=== PATIENT | male | born 1960 | race Caucasian/White ===

== ENCOUNTER 2017-09-14 09:13 | Day surgery (SDC) | payer OTHER ==
[~2017-09-14] VITALS: Ht 188 cm; Wt 126.4 kg
[~2017-09-14 09:13] MED LIST: AMLO10 PO; ASPI81CH PO; ATOR40TA PO; BASAGLAR K100 UNIT/1 SC; CARV25 PO; CLON.2TP TP; Desyrel50 MG PO; ESCI20 PO; GABA300 PO; GLIP10 PO; HYDCHL25 PO; INSULANPEN SQ; LAMO100 PO; LIOT25 PO; LISI20 PO; LORA2 PO; METF500 PO; METO100ER PO; Omeprazole20 M1 PO; POTA8 PO; SIMV10 PO; SPIR25 PO; SUMA25 PO; TAMS.4ER PO; TOPI25 PO
== END 2017-09-14 11:31 | disposition home or self-care (01) ==
LOC: ORSCSDS 09:13
PROVIDERS: Internal Medicine Gastroenterology
PROC: 0DJ08ZZ Inspection of Upper Intestinal Tract, Via Natural or Artificial Opening Endoscopic (ICD-10-PCS; principal; 2017-09-14 10:45)
DX: R13.10 Dysphagia, unspecified (principal); E78.5 Hyperlipidemia, unspecified; E11.22 Type 2 diabetes mellitus with diabetic chronic kidney disease; I12.9 Hypertensive chronic kidney disease with stage 1 through stage 4 chronic kidney disease, or unspecified chronic kidney disease; N18.9 Chronic kidney disease, unspecified; G47.33 Obstructive sleep apnea (adult) (pediatric); Z87.891 Personal history of nicotine dependence; Z79.4 Long term (current) use of insulin; Z79.899 Other long term (current) drug therapy
CPT/HCPCS: 82947; J2250; J7030; J7120

== ENCOUNTER 2017-11-27 15:38 | Emergency (ER) | payer OTHER ==
[~2017-11-27] VITALS: Ht 188 cm; Wt 122.5 kg
== END 2017-11-27 16:54 | disposition home or self-care (01) ==
LOC: ER 15:38
DX: I80.8 Phlebitis and thrombophlebitis of other sites (principal); E11.9 Type 2 diabetes mellitus without complications; Z79.899 Other long term (current) drug therapy; Z79.4 Long term (current) use of insulin
CPT/HCPCS: 99281

== ENCOUNTER 2019-03-01 20:10 | Inpatient (IN) | payer OTHER ==
[~2019-03-01] VITALS: Ht 188 cm; Wt 123.0 kg
[~2019-03-01 20:10] MED LIST changes: -AMLO10 PO; -ATOR40TA PO; -BASAGLAR K100 UNIT/1 SC; -ESCI20 PO; -GABA300 PO; -GLIP10 PO; -INSULANPEN SQ; -METF500 PO; -METO100ER PO; -TAMS.4ER PO; -TOPI25 PO
[2019-03-01 20:39] LABS: BASOPHILS ABSOLUTE AUTO 0.03 K/mm3 (0.00-0.23); BASOPHILS PERCENT AUTO 0 % (0-2); EOSINOPHILS ABSOLUTE AUTO 0.29 K/mm3 (0.00-0.68); EOSINOPHILS PERCENT AUTO 3 % (0-6); Hematocrit 37.6 % (37.0-53.0); Hemoglobin 13.1 g/dL (13.5-17.5); IMMATURE GRAN ABSOLUTE AUTO 0.02 K/mm3 (0.00-0.10); IMMATURE GRAN PERCENT AUTO 0 % (0-1); LYMPHOCYTES PERCENT AUTO 31 % (21-46); MONOCYTES PERCENT AUTO 7 % (4-13); Mean Corpuscular HGB 28.5 pg (26.0-34.0); Mean Corpuscular HGB Conc 34.8 g/dL (31.5-36.5); Mean Corpuscular Volume 82 fL (80-100); Mean Platelet Volume 9.5 fL (9.1-12.4); NEUTROPHILS ABSOLUTE AUTO 5.04 K/mm3 (1.96-9.15); NEUTROPHILS PERCENT AUTO 58 % (41-73); Platelet Count 181 K/mm3 (150-400); RDW Coefficient Variation 13.2 % (11.7-14.2); RDW Standard Deviation 38.2 fL (35.1-46.3); White Blood Cell Count 8.68 K/mm3 (4.00-11.30)
[2019-03-01 20:59] LABS: Albumin, Blood 3.3 g/dL (3.4-5.0); Bilirubin, Total 1.2 mg/dL (0.1-1.0); Bun/Creatinine Ratio 12.5 (12.0-20.0); Calcium, Blood 8.5 mg/dL (8.5-10.1); Creatinine, Blood 2.32 mg/dL (0.60-1.20); Globulin, Blood 3.2 g/dL (2.2-4.0); Potassium, Blood 3.7 mmol/L (3.5-5.5); Total Protein, Blood 6.5 g/dL (6.4-8.2)
[2019-03-01] MEDS ORDERED: GLIP5 PO (22:15)
[2019-03-01] MEDS ORDERED: Amlodipine Besy10 MG PO (22:15)
[2019-03-01] MEDS ORDERED: Glucophage1000 MG PO (22:15)
[2019-03-01] MEDS ORDERED: ESCI20 PO (22:16)
[2019-03-01] MEDS ORDERED: TAMS.4ER PO (22:16)
[2019-03-01] MEDS ORDERED: BASAGLAR K100 UNIT/1 SC (22:16)
[2019-03-01] MEDS ORDERED: LISI20 PO (22:16)
[2019-03-01] MEDS ORDERED: METO100ER PO (22:17)
[2019-03-01] MEDS ORDERED: ATOR40TA PO (22:17)
[2019-03-01] MEDS ORDERED: Neurontin800 MG PO (22:17)
[2019-03-01] MEDS ORDERED: TOPI50 PO (22:17)
[2019-03-01] MEDS ORDERED: TOPI100 PO (22:18)
[2019-03-01] MEDS ORDERED: INSULANPEN SQ (22:35)
[2019-03-01] MEDS ORDERED: VITAMIN D3400 UNIT PO (22:38)
[2019-03-01] MEDS ORDERED: Fish Oil 10001000 MG PO (22:38)
[2019-03-01] MEDS ORDERED: ZOLP10 PO (22:43)
[2019-03-01] MEDS ORDERED: Aspirin EC81 MG PO (22:43)
--- NOTE | 2019-03-02 03:52 | NUR ---
TRANSFER NOTE PT ARRIVED TO THE FLOOR VIA STRETCHER AT 2355. PT HAD VSS AND ONLY COMPLAINED OF LEFT LOWER EXTREMITY PAIN. PT ORIENTED TO ROOM.
--- NOTE | 2019-03-02 03:53 | NUR ---
SHIFT SUMMARY PT IS ALERT, ORIENTED, AND 1-2 PERSON ASSIST. PT HAS RECIEVED TYLENOL AND FENTYNAL PER EMAR. GOOD CAPILLARY REFILL NOTED ON LEFT TOES. HOSPITALIST WAS CALLED FOR CLARIFICATION OF DIET ORDER, NPO WAS ORDERED WAS CARDIAC DIET. PER HOSPITALIST, PT SHOULD BE NPO UNTIL MORNING. NO OTHER COMPLAINTS FROM PT AT THIS TIME. VSS. WILL CONTINUE TO MONITOR.
[2019-03-02 06:00] LABS: Calcium, Blood 7.7 mg/dL (8.5-10.1); Creatinine, Blood 1.59 mg/dL (0.60-1.20); Potassium, Blood 3.5 mmol/L (3.5-5.5)
--- NOTE | 2019-03-02 17:56 | NUR ---
PATIENT HAS BEEN RESTING IN BED PREPARING FOR SURGERY WHICH WAS POSTPONED UNITL 04/03 . PATIENT WAS ALLOWED TO EAT DINNER BUT WILL BE NPO AFTER MIDNIGHT TONIGHT . HE HAS ONLY COMPLAINED OF PAIN AND HAS BEEN MEDICATED PER EMAR. FAMILY HAS BEEN PRESENT. NO ACUTE CHANGES
[2019-03-03 05:24] LABS: Hematocrit 37.8 % (37.0-53.0); Hemoglobin 13.2 g/dL (13.5-17.5); Mean Corpuscular HGB 28.9 pg (26.0-34.0); Mean Corpuscular HGB Conc 34.9 g/dL (31.5-36.5); Mean Corpuscular Volume 83 fL (80-100); Platelet Count 160 K/mm3 (150-400); RDW Standard Deviation 38.4 fL (35.1-46.3); Red Blood Cell Count 4.57 M/mm3 (4.30-5.90); White Blood Cell Count 8.01 K/mm3 (4.00-11.30)
[2019-03-03 05:39] LABS: Anion Gap 9 mmol/L (6-16); Blood Urea Nitrogen 14 mg/dL (8-24); Bun/Creatinine Ratio 11.6 (12.0-20.0); CO2, Blood 25 mmol/L (21-32); Calcium, Blood 7.7 mg/dL (8.5-10.1); Chloride, Blood 112 mmol/L (98-108); Creatinine, Blood 1.21 mg/dL (0.60-1.20); Glomerular Filtration Rate >60 (60-); Glucose, Blood 129 mg/dL (70-99); Potassium, Blood 3.1 mmol/L (3.5-5.5); Sodium, Blood 146 mmol/L (136-145)
--- NOTE | 2019-03-03 06:19 | NUR ---
SHIFT SUMMARY: PATIENT HAS A ROUGH NIGHT WITH WAKING UP OFF AND ON THROUGHOUT THE NIGHT DUE TO PAIN AND DISCOMFORT. MEDS WERE GIVEN PER EMAR, INCLUDING PAIN MEDS EVERY 2-4 HOURS PER HIS REQUEST. LEG STAYED ELEVATED, GOOD CIRC CHECKS THROUGHOUT THE NIGHT. NO OTHER COMPLAINTS WERE NOTED, IV INFUSED WITH OUT ANY PROBLEMS, NO OTHER ACUTE CHANGES TO NOTE THIS SHIFT. WILL REPORT TO DAY SHIFT RN.
--- NOTE | 2019-03-03 12:49 | NUR ---
History, Chart, Medications and Allergies reviewed before start of procedure. Lungs clear T/O to Auscultation. Patient confirms NPO status and agrees with scheduled surgery. SPLINT TO LEFT LEG.
--- NOTE | 2019-03-03 13:31 | NUR ---
PT TAKEN TO PRE-OP TO PREP FOR SURGERY LLE- PT VOIDED AND HAD BLOOD SUGAR TAKEN. IV POTASSIUM BAG [address] INFUSED, STOPPED FOR SURGERY. IS WITH PATIENT AND TOOK PERSONAL EFFECTS.
--- NOTE | 2019-03-03 15:56 | NUR ---
CONFUSED ATTEMPTING TO CRAWL OOB PULLING O2 MASK OFF DR ISAAC AT BEDSIDE
--- NOTE | 2019-03-03 16:31 | NUR ---
PT DOES NOT RATE PAINB IN ANY WAY EXCEPT TO SAY "IT HURTS" AND HAS FACIAL GRIMACE THEN DECLINED PAIN MEDICATION BUT NOW IS TELLING ME AFTER APPROX 20 MINUTES THAT HE KNOW WHATS PAIN MED. HE IS A/O AT THIS TIME
--- NOTE | 2019-03-03 17:10 | NUR ---
pt transferred to room on own bed, a/0 x 4, pleasant/cooperative. post op vs commenced and stable. lle cool, cap refil <3 sec, pedal pulse palpable and strong. pt denies pain, no n/v at this time.
--- NOTE | 2019-03-03 18:21 | NUR ---
POST OP VS CONTINUING AND STABLE, PT DENIES N/V, HAS EATEN DINNER TRAY, MEDICATED PER MAR FOR PAIN OF 10, PT A/0 X 4, PLEASANT/COOPERATIVE.
[2019-03-04 04:27] LABS: BASOPHILS PERCENT AUTO 0 % (0-2); EOSINOPHILS ABSOLUTE AUTO 0.01 K/mm3 (0.00-0.68); EOSINOPHILS PERCENT AUTO 0 % (0-6); Hematocrit 34.4 % (37.0-53.0); Hemoglobin 11.7 g/dL (13.5-17.5); IMMATURE GRAN ABSOLUTE AUTO 0.02 K/mm3 (0.00-0.10); IMMATURE GRAN PERCENT AUTO 0 % (0-1); LYMPHOCYTES ABSOLUTE AUTO 1.46 K/mm3 (0.84-5.20); LYMPHOCYTES PERCENT AUTO 16 % (21-46); MONOCYTES ABSOLUTE AUTO 0.89 K/mm3 (0.16-1.47); MONOCYTES PERCENT AUTO 10 % (4-13); Mean Corpuscular HGB 28.1 pg (26.0-34.0); Mean Corpuscular Volume 83 fL (80-100); Mean Platelet Volume 9.2 fL (9.1-12.4); NEUTROPHILS ABSOLUTE AUTO 6.95 K/mm3 (1.96-9.15); NEUTROPHILS PERCENT AUTO 75 % (41-73); Platelet Count 176 K/mm3 (150-400); RDW Coefficient Variation 12.9 % (11.7-14.2); RDW Standard Deviation 38.2 fL (35.1-46.3); Red Blood Cell Count 4.16 M/mm3 (4.30-5.90); White Blood Cell Count 9.33 K/mm3 (4.00-11.30)
[2019-03-04] MEDS ORDERED: MIRALAX17 GM PO (14:38)
[2019-03-04] MEDS ORDERED: HYDR1TAB94 PO (14:41)
--- NOTE | 2019-03-04 17:52 | NUR ---
3870 discharge instructions reviewed with patient and his . per patient he spoke with staff at [facility] and he was told he would have to pay for a wheelchair out of pocket- patient states he has access to a wheelchair without leg extensions. patient wishes to be discharged today and feels he will be able to manage safely at home. spoke with ingrid florez rn, [facility] liason and she will contact patient on 03/07/19 to follow up
== END 2019-03-04 17:45 | disposition home or self-care (01) | DRG 493 ==
LOC: ER 20:10 → MEDS 20:11 → SURS 03-03 14:09
PROVIDERS: Emergency Medicine; Internal Medicine; Orthopaedic Surgery; ADMIT Hospitalist
PROC: 0QSH36Z Reposition Left Tibia with Intramedullary Internal Fixation Device, Percutaneous Approach (ICD-10-PCS; principal; 2019-03-03 12:30)
DX: S82.302A Unspecified fracture of lower end of left tibia, initial encounter for closed fracture (principal); N17.9 Acute kidney failure, unspecified; S82.402A Unspecified fracture of shaft of left fibula, initial encounter for closed fracture; N18.3 Chronic kidney disease, stage 3 (moderate); N40.0 Benign prostatic hyperplasia without lower urinary tract symptoms; I12.9 Hypertensive chronic kidney disease with stage 1 through stage 4 chronic kidney disease, or unspecified chronic kidney disease; E11.22 Type 2 diabetes mellitus with diabetic chronic kidney disease; I95.1 Orthostatic hypotension; Z79.84 Long term (current) use of oral hypoglycemic drugs; Z79.4 Long term (current) use of insulin; Z79.899 Other long term (current) drug therapy; Z87.891 Personal history of nicotine dependence; Z79.82 Long term (current) use of aspirin
CPT/HCPCS: 29505; 36415; 73590; 73700; 76000; 76377; 80048; 80053; 82947; 85025; 85027; 93005; 93010; 93306; 96361; 96361-59; 96374-59; 96375; 96375-59; 96376; 96376-59; 97162; 97166; 97530; 97535; 99285-25; A9270; A9270-GY; C1713; C1769; G0378; J0690; J1100; J1170; J1644; J1885; J2250; J2370; J2405; J2704; J3010; J3480; J7030; J7120

== ENCOUNTER 2019-08-09 20:22 | Inpatient (IN) | payer MEDICAID ==
[~2019-08-09] VITALS: Ht 188 cm; Wt 109.5 kg
[~2019-08-09 20:22] MED LIST changes: +ATOR40TA PO; +Amlodipine Besy10 MG PO; +Aspirin EC81 MG PO; +BASAGLAR K100 UNIT/1 SC; +ESCI20 PO; +Fish Oil 10001000 MG PO; +GLIP5 PO; +Glucophage1000 MG PO; +HYDR1TAB94 PO; +INSULANPEN SQ; +METO100ER PO; +MIRALAX17 GM PO; +Neurontin800 MG PO; +TAMS.4ER PO; +TOPI100 PO; +TOPI50 PO; +VITAMIN D3400 UNIT PO; +ZOLP10 PO
[2019-08-09 21:16] LABS: BASOPHILS ABSOLUTE AUTO 0.04 K/mm3 (0.00-0.23); BASOPHILS PERCENT AUTO 0 % (0-2); EOSINOPHILS PERCENT AUTO 2 % (0-6); Hematocrit 48.5 % (37.0-53.0); Hemoglobin 16.8 g/dL (13.5-17.5); IMMATURE GRAN ABSOLUTE AUTO 0.02 K/mm3 (0.00-0.10); IMMATURE GRAN PERCENT AUTO 0 % (0-1); LYMPHOCYTES ABSOLUTE AUTO 2.81 K/mm3 (0.84-5.20); LYMPHOCYTES PERCENT AUTO 25 % (21-46); MONOCYTES ABSOLUTE AUTO 0.68 K/mm3 (0.16-1.47); MONOCYTES PERCENT AUTO 6 % (4-13); Mean Corpuscular HGB Conc 34.6 g/dL (31.5-36.5); Mean Corpuscular Volume 78 fL (80-100); Mean Platelet Volume 9.8 fL (9.1-12.4); NEUTROPHILS ABSOLUTE AUTO 7.37 K/mm3 (1.96-9.15); NEUTROPHILS PERCENT AUTO 66 % (41-73); Platelet Count 279 K/mm3 (150-400); RDW Coefficient Variation 13.4 % (11.7-14.2); RDW Standard Deviation 37.7 fL (35.1-46.3); Red Blood Cell Count 6.22 M/mm3 (4.30-5.90); White Blood Cell Count 11.12 K/mm3 (4.00-11.30)
[2019-08-09 21:36] LABS: Alanine Aminotransfer (ALT/SGP 52 U/L (12-78); Albumin, Blood 4.2 g/dL (3.4-5.0); Alk Phos 120 U/L (50-136); Anion Gap 16 mmol/L (6-16); Aspartate Aminotrans (AST/SGOT 23 U/L (12-37); Bilirubin, Total 2.7 mg/dL (0.1-1.0); Blood Urea Nitrogen 17 mg/dL (8-24); Bun/Creatinine Ratio 10.2 (12.0-20.0); CO2, Blood 20 mmol/L (21-32); Calcium, Blood 9.9 mg/dL (8.5-10.1); Chloride, Blood 103 mmol/L (98-108); Creatinine, Blood 1.66 mg/dL (0.60-1.20); Globulin, Blood 4.4 g/dL (2.2-4.0); Glomerular Filtration Rate 46 (60-); Glucose, Blood 314 mg/dL (70-99); Sodium, Blood 139 mmol/L (136-145); Total Protein, Blood 8.6 g/dL (6.4-8.2); Troponin I <0.015 ng/mL (0.000-0.040)
[2019-08-09 22:23] LABS: Source, Urine Clean Catch
[2019-08-09 22:25] LABS: Bilirubin, Urine Neg (Neg); Blood, Urine 1+ (Neg); Glucose Qualitative, Urine 4+ (Neg); Ketones, Urine 4+ (Neg); Leukocyte Esterase, Urine Neg (Neg); Nitrite, Urine Neg (Neg); Protein, Urine 4+ (Neg); Specific Gravity, Urine 1.015 (1.003-1.022); Urobilinogen, Urine NORM (Normal)
[2019-08-09 22:28] LABS: Appearance, Urine Clear (Clear); Color, Urine Yellow (P-Yellow)
[2019-08-09 22:31] LABS: Red Blood Cells, Urine 0-2 /hpf (0-2)
[2019-08-09 22:32] LABS: Bacteria Mod /hpf; Hyaline Casts 0-2 /lpf (0-2); Squamous Epithelial Cells Not Seen /hpf (Few)
[2019-08-09 23:23] LABS: Influenza A Negative (NEGATIVE); Influenza B Negative (NEGATIVE)
[2019-08-10 04:22] LABS: Source, Urine Catheter
[2019-08-10 04:26] LABS: Bilirubin, Urine Neg (Neg); Blood, Urine 1+ (Neg); Glucose Qualitative, Urine 4+ (Neg); Ketones, Urine 3+ (Neg); Leukocyte Esterase, Urine Neg (Neg); Nitrite, Urine Neg (Neg); Protein, Urine 2+ (Neg); Urobilinogen, Urine NORM (Normal)
[2019-08-10 04:32] LABS: Appearance, Urine Clear (Clear); Color, Urine Yellow (P-Yellow)
[2019-08-10 04:33] LABS: Bacteria Few /hpf; Red Blood Cells, Urine 0-2 /hpf (0-2); Squamous Epithelial Cells Not Seen /hpf (Few); White Blood Cells, Urine 0-2 /hpf (0-5)
--- NOTE | 2019-08-10 05:16 | NUR ---
PT TO ICU 14 FROM ED. PT ARRIVES ON STRETCHER, ABLE TO STAND AND PIVOT TO ICU BED. PT C/O NAUSEA AND BEGAN ACTIVELY VOMITING. PT STAND BY ASSIST TO USE URINAL, 125 ML OUT, BLADDER SCAN SHOWS 660 ML RETAINED. NARVAEZ PLACED FOR RETENTION. BLOOD PRESSURE 278/136 ON ARRIVAL. ORDER TO START NICARDIPINE GTT. PT CHANGED FROM PCU OBS TO ICU STATUS PT. NICARAPINE GTT STARTED AT 0415 AND TITRATED Q15 MIN TO MAX DOSE 150 ML/HR AT 0530 WITH NO CHANGE IN BLOOD PRESSURE. PT TACHYCARDIC WITH HR IN MID 140'S. PT TREATED FOR C/O ABDOMINAL PAIN AND NAUSEA. CALL TO DR. SHELTON, UPDATED ON PT STATUS AND CONTINUED HYPERTENSION. ORDER TO START LABETALOL GTT, TITRATE TO AFFECT.
[2019-08-10 05:58] LABS: Anion Gap 16 mmol/L (6-16); Blood Urea Nitrogen 15 mg/dL (8-24); Bun/Creatinine Ratio 13.3 (12.0-20.0); CO2, Blood 15 mmol/L (21-32); Calcium, Blood 7.9 mg/dL (8.5-10.1); Chloride, Blood 112 mmol/L (98-108); Creatinine, Blood 1.13 mg/dL (0.60-1.20); Glomerular Filtration Rate >60 (60-); Glucose, Blood 346 mg/dL (70-99); Potassium, Blood 2.6 mmol/L (3.5-5.5); Sodium, Blood 143 mmol/L (136-145)
--- NOTE | 2019-08-10 09:31 | NUR ---
0700-ASSUMED CARE OF PT. PT IS ALERT AND ORIENTED. FOLLOWING COMMANDS. PT IS FEELING NAUSEOUS. ON LABETALOL DRIP AT 3MG/MIN THIS WAS INCREASED TO 4MG/MIN. 0825-DR. ALTMAN WAS CALLED REGARDING PT'S UNCONTROLLED BP. ORDERS RECEIVED.
--- NOTE | 2019-08-10 15:13 | NUR ---
DR. ALTMAN WAS NOTIFIED REGARDING AMOUNT OF PT'S EMESIS NO MAINTENANCE FLUID ORDERED. ORDERS RECEIVED.
--- NOTE | 2019-08-10 18:57 | NUR ---
SHIFT SUMMARY: PT IS STILL ON LABETALOL DRIP 2 0.5MG/MIN. PT STATED FEELING A LITTLE BETTER, NOT NASEOUS HE HAD BEEN. AFEBRILE. PT'S POTASSIUM WAS REPLACED WITH 100MEQ TOTAL POTASSIUM IV. AFEBRILE.
--- NOTE | 2019-08-10 20:00 | NUR ---
ASSUMED CARE OF PT AT 1915. REPORT RECEIVED AT BEDSIDE. PT PRESENTS IN BED. ALERT AND ORIENTED. PLEASANT AND COOPERATIVE WITH CARE AND ASSESSMENT. PT LABATELOL DRIP OFF AT THIS TIME. BLOOD PRESSURES REMAINS WNL. WILL REVIEW CHART AND PLAN OF CARE FOR THIS PT.
--- NOTE | 2019-08-11 | NUR ---
PT HAS BEEN ABLE TO REST THIS EVENING. PT DENIES COMPLAINTS OF NAUSEA. STATES HE IS FEELING MUCH BETTER. DISCUSSED AND TEACHING DONE ON IMPORTANCE OF KEEPING ON HIS PRESCRIBED MEDICATIONS. PT VOICED UNDERSTANDING.
[2019-08-11 03:33] LABS: BASOPHILS ABSOLUTE AUTO 0.01 K/mm3 (0.00-0.23); BASOPHILS PERCENT AUTO 0 % (0-2); EOSINOPHILS ABSOLUTE AUTO 0.01 K/mm3 (0.00-0.68); EOSINOPHILS PERCENT AUTO 0 % (0-6); Hematocrit 40.8 % (37.0-53.0); Hemoglobin 13.7 g/dL (13.5-17.5); IMMATURE GRAN ABSOLUTE AUTO 0.08 K/mm3 (0.00-0.10); IMMATURE GRAN PERCENT AUTO 1 % (0-1); LYMPHOCYTES ABSOLUTE AUTO 1.93 K/mm3 (0.84-5.20); LYMPHOCYTES PERCENT AUTO 13 % (21-46); MONOCYTES ABSOLUTE AUTO 1.15 K/mm3 (0.16-1.47); MONOCYTES PERCENT AUTO 8 % (4-13); Mean Corpuscular HGB 27.2 pg (26.0-34.0); Mean Corpuscular HGB Conc 33.6 g/dL (31.5-36.5); Mean Platelet Volume 9.8 fL (9.1-12.4); NEUTROPHILS ABSOLUTE AUTO 11.83 K/mm3 (1.96-9.15); NEUTROPHILS PERCENT AUTO 79 % (41-73); Platelet Count 225 K/mm3 (150-400); RDW Coefficient Variation 14.3 % (11.7-14.2); RDW Standard Deviation 40.7 fL (35.1-46.3); Red Blood Cell Count 5.03 M/mm3 (4.30-5.90); White Blood Cell Count 15.01 K/mm3 (4.00-11.30)
[2019-08-11 03:37] LABS: Mean Corpuscular Volume 81 fL (80-100)
[2019-08-11 03:51] LABS: Bun/Creatinine Ratio 11.1 (12.0-20.0); Calcium, Blood 9.2 mg/dL (8.5-10.1); Creatinine, Blood 2.25 mg/dL (0.60-1.20); Magnesium, Blood 1.6 mg/dL (1.6-2.4); Potassium, Blood 3.6 mmol/L (3.5-5.5)
--- NOTE | 2019-08-11 06:11 | NUR ---
PT HAS NO CHANGES FROM PREVIOUS ASSESSMENTS. HAS BEEN ABLE TO REST WITHOUT COMPLAINTS. NO NAUSEA. VSS WNL. WILL CONTINUE TO MONITOR PT, AND WILL REPORT OFF TO ONCOMING RN.
--- NOTE | 2019-08-11 08:00 | NUR ---
ASSUMED CARE OF PT AT 0700. REPORT FROM REBECA LAZARO. PT RESTING IN BED. A&OX4. ANSWERS QUESTIONS APPROPRIATELY. DENIES COMPLAINTS. STATES HE WANTS TO GO HOME. REPORTS NAUSEA IMPROVED. ABD ROUND, SOFT, NON TENDER. BT X 4. LUNGS CLEAR. VSS. DR SHELTON IN TO SEE PT. LR INCREASED TO 150 ML/HR. PT STATUS CHANGED TO MEDICAL s TELE. PT TOLERATED BREAKFAST WELL. DENIES N/V p EATING. WILL CONTINUE TO MONITOR.
--- NOTE | 2019-08-11 09:32 | NUR ---
PT TRANSFERRED TO MEDICAL FLOOR. REPORT TO FRIDA LAZARO. ALL BELONGINGS c PT.
--- NOTE | 2019-08-11 11:26 | NUR ---
PT TRANSFERRED FROM ICU THIS MORNING. PT IS ALERT AND ORIENTED AND INDEPENDENT IN HIS ROOM. HE IS ABLE TO EXPRESS ANY NEEDS. PT EDUCATED REGARDING PROPER FOODS FOR HIS DM2. FAMILY AT BEDSIDE. PT HAS LR RUNNING. PT STATED HE HAS SESAY, TYLENOL GIVEN. NO SKIN ISSUES NOTED. CALL LIGHT WITHIN REACH.
--- NOTE | 2019-08-11 15:50 | NUR ---
PT TRANSFERRED FROM TO ROOM 348 TO ROOM 363. PT TRANSFERRED IN BED D/T HIS DEEP SLEEPING, NO S/S OF DISTRESS. WILL MONITOR
--- NOTE | 2019-08-11 18:20 | NUR ---
PT AWAKE AND AMBULATING INDEPENDENTLY IN THE ROOM. SITTING ON EOB EATING DINNER.
--- NOTE | 2019-08-11 18:20 | NUR ---
PT DENIES ABD PAIN, N/V OR OTHER DISCOMFORT. EATING DINNER AND APPEARS TO BE TOLERATING WELL. NO ACUTE CHANGES NOTED SINCE ARRIVAL TO ROOM. WILL CONTINUE TO MONITOR AND REPORT TO ONCOMING RN.
--- NOTE | 2019-08-12 07:21 | NUR ---
NOC SHIFT SUMMARY PT PLEASANT AND COOPERATIVE WITH CARE. HE HAS SLEPT MUCH OF THE NIGHT. AAOX4. TREATED FOR HTN ONCE PER EMAR TO GOOD EFFECT. NO ACUTE CHANGES NOTED. REPORT TO ONCOMING RN.
[2019-08-12 08:09] LABS: Bun/Creatinine Ratio 15.8 (12.0-20.0); Calcium, Blood 8.9 mg/dL (8.5-10.1); Creatinine, Blood 1.65 mg/dL (0.60-1.20)
[2019-08-12] MEDS ORDERED: HUMALOG KW200 UNIT/1 (11:50)
[2019-08-12] MEDS ORDERED: Catapres0.2 MG PO (11:51)
[2019-08-12] MEDS ORDERED: ASPI81CH PO (11:51)
--- NOTE | 2019-08-12 13:08 | NUR ---
PATIENT DISCHARGE: PATIENT DISCHARGED TO HOME THIS SHIFT. MEDICATION RECONCILIATION COMPLETED; MED LIST FAXED TO [facility]. DISCHARGE EDUCATION COMPLETED WITH PATIENT AND FAMILY. PATIENT TRANSPORTED TO EXIT BY [facility] STAFF WITH WHEELCHAIR AT 1304. PATIENT DEPARTED [facility] VIA PRIVATE AUTO.
== END 2019-08-12 13:35 | disposition home or self-care (01) | DRG 305 ==
LOC: ER 20:22 → ERHOLD 20:23 → ICUW 20:23 → MEDS 08-11 09:30 → ENPENDDIS 08-12 12:00 → MEDS 08-12 13:35
PROVIDERS: Emergency Medicine; Internal Medicine; Physician Assistant; ADMIT Internal Medicine
DX: I16.0 Hypertensive urgency (principal); N17.9 Acute kidney failure, unspecified; E11.65 Type 2 diabetes mellitus with hyperglycemia; N18.3 Chronic kidney disease, stage 3 (moderate); E11.22 Type 2 diabetes mellitus with diabetic chronic kidney disease; I12.9 Hypertensive chronic kidney disease with stage 1 through stage 4 chronic kidney disease, or unspecified chronic kidney disease; N40.0 Benign prostatic hyperplasia without lower urinary tract symptoms; Z87.891 Personal history of nicotine dependence; Z79.4 Long term (current) use of insulin; Z79.82 Long term (current) use of aspirin; E87.6 Hypokalemia; D72.829 Elevated white blood cell count, unspecified
CPT/HCPCS: 36415; 51702; 71046; 74176; 80048; 80053; 81001; 82010; 82947; 83690; 83735; 84484; 85025; 87086; 87804; 93005; 93010; 96361; 96365; 96375; 96376; 99285-25; A9270; G0378; J0360; J0696; J1200; J1630; J1650; J2405; J2550; J2765; J3010; J3480; J7030; J7050; J7060; J7120

== ENCOUNTER 2019-10-07 14:10 | Observation (INO) | payer SELFPAY ==
[~2019-10-07] VITALS: Ht 188 cm; Wt 101.5 kg
[~2019-10-07 14:10] MED LIST changes: +Catapres0.2 MG PO; +HUMALOG KW200 UNIT/1
[2019-10-07 14:34] LABS: BASOPHILS ABSOLUTE AUTO 0.02 K/mm3 (0.00-0.23); BASOPHILS PERCENT AUTO 0 % (0-2); EOSINOPHILS PERCENT AUTO 0 % (0-6); Hematocrit 52.9 % (37.0-53.0); Hemoglobin 18.1 g/dL (13.5-17.5); IMMATURE GRAN ABSOLUTE AUTO 0.02 K/mm3 (0.00-0.10); IMMATURE GRAN PERCENT AUTO 0 % (0-1); LYMPHOCYTES ABSOLUTE AUTO 1.65 K/mm3 (0.84-5.20); LYMPHOCYTES PERCENT AUTO 17 % (21-46); MONOCYTES ABSOLUTE AUTO 0.27 K/mm3 (0.16-1.47); MONOCYTES PERCENT AUTO 3 % (4-13); Mean Corpuscular HGB 27.5 pg (26.0-34.0); Mean Corpuscular HGB Conc 34.2 g/dL (31.5-36.5); Mean Corpuscular Volume 80 fL (80-100); Mean Platelet Volume 9.8 fL (9.1-12.4); NEUTROPHILS ABSOLUTE AUTO 7.91 K/mm3 (1.96-9.15); NEUTROPHILS PERCENT AUTO 80 % (41-73); Platelet Count 330 K/mm3 (150-400); Red Blood Cell Count 6.59 M/mm3 (4.30-5.90); White Blood Cell Count 9.87 K/mm3 (4.00-11.30)
[2019-10-07 15:11] LABS: Alanine Aminotransfer (ALT/SGP 26 U/L (12-78); Albumin, Blood 4.5 g/dL (3.4-5.0); Alk Phos 129 U/L (50-136); Anion Gap 19 mmol/L (6-16); Aspartate Aminotrans (AST/SGOT 16 U/L (12-37); Bilirubin, Total 2.9 mg/dL (0.1-1.0); Blood Urea Nitrogen 17 mg/dL (8-24); Bun/Creatinine Ratio 13.1 (12.0-20.0); CO2, Blood 19 mmol/L (21-32); Calcium, Blood 10.2 mg/dL (8.5-10.1); Chloride, Blood 97 mmol/L (98-108); Globulin, Blood 4.7 g/dL (2.2-4.0); Glomerular Filtration Rate >60 (60-); Glucose, Blood 458 mg/dL (70-99); Potassium, Blood 3.4 mmol/L (3.5-5.5); Sodium, Blood 135 mmol/L (136-145); Total Protein, Blood 9.2 g/dL (6.4-8.2)
[2019-10-07] MEDS ORDERED: ESCI20 PO (16:40)
[2019-10-07] MEDS ORDERED: CLON.2 PO ×2 (16:40→17:34)
[2019-10-07] MEDS ORDERED: Neurontin800 MG PO (16:45)
[2019-10-07] MEDS ORDERED: Metformin HCl1000 MG PO (16:45)
[2019-10-07] MEDS ORDERED: ATORVASTATIN CA40 MG PO (16:45)
[2019-10-07] MEDS ORDERED: GLIP10ER PO (17:45)
[2019-10-08 04:00] LABS: Bun/Creatinine Ratio 12.6 (12.0-20.0); Calcium, Blood 8.9 mg/dL (8.5-10.1); Creatinine, Blood 2.38 mg/dL (0.60-1.20); Potassium, Blood 3.8 mmol/L (3.5-5.5)
--- NOTE | 2019-10-08 04:36 | NUR ---
PATIENT BP AT THE START OF THE SHIFT WAS 217/140 WITH HR 103. CLONIDINE WAS GIVEN AT 192 (217/140) AND AT 2107 (204/115). NORVASC 10MG PO WAS ALSO GIVEN AT 2107. AT 2316 BP HAD DROPPED TO 135/84 HR 99. IV FLUIDS STATED AT 125CC/ HOUR. BP CONTINUED TO DROP TO 96/50 HR 76 @ 0419. PATIENTS MIGRAINE WAS COMPLETELY RESOLVED BY 2229. NAUSEA AND VOMITING RESOLVED @ 0 AFTER ZOFRAN IV. PATIENT STATED THAT HE WAS ABLE SLEEP FOR THE FIRST TIME IN 2 DAYS. UP TO THE BR TO VOID T/O NIGHT. NO ACUTE CHANGES.
--- NOTE | 2019-10-08 08:02 | NUR ---
ASSUMED CARE REPORT RECEVIED FROM CUSTOM GARMENT DESIGNER. PT RESTING IN BED, BUT GOT UP TO EOB INDPENEDENTLY FOR BREAKFAST. PT DENIES ANY CURRENT HEADACHE OR CHEST PAIN. PT STATES HIS NAUSEA IS IMPROVED AND IS EATING SOME BREAKFAST. BG 433. PT SAYS HE NORMALLY TAKES 25 UNITS OF LANTUS, ONLY 20 ORDERED. WILL TALK WITH HOSPITALIST ABOUT IT ON ROUNDS. NO OTHER REQUESTS FROM PT AT THIS TIME. CONTINUE TO MONITOR.
--- NOTE | 2019-10-08 11:59 | NUR ---
REASSESSMENT: PT HAS BEEN RESTING IN BED THROUGHOUT THE MORNING. HE IS GETTING UP TO THE BR WITH MINIMAL ASSIST. REMAINS ALERT AND ORIENTED. NO HEADACHES OR NAUSEA. BLOOD SUGARS DISCUSSED WITH DR. DAWKINS. ORDER FOR AN ADDITIONAL 5 UNITS HUMALOG WITH LUNCH SS D/T GLUCOSE OVER 400. NO OTHER REQUESTS FROM PT.
--- NOTE | 2019-10-08 16:18 | NUR ---
SHIFT SUMMARY PT HAS BEEN RESTING THROUGHOUT THE DAY. BP HAS BEEN CONTROLLED WITH SBP IN THE 120-130S, SEE VITALS. DENIES HEADACHE, NAUSEA, DIZZINESS. BLOOD SUGARS CONTINUE TO BE ELEVATED, BUT DR. DAWKINS ADDED BACK IN PT'S ORAL DIABETIC MEDS WELL INCREASED HIS LANTUS DOSE. PT STATES HIS BLOOD SUGAR AT HOME IS IN THE 200-300 RANGE CONSISTENTLY. LUNGS REMAIN CLEAR, VOIDING INDEPENDENTLY, APPETITE IMPROVING. CONTINUING TO MONITOR.
[2019-10-09 04:48] LABS: Bun/Creatinine Ratio 19.6 (12.0-20.0); Calcium, Blood 8.8 mg/dL (8.5-10.1); Creatinine, Blood 1.99 mg/dL (0.60-1.20); Potassium, Blood 2.8 mmol/L (3.5-5.5)
--- NOTE | 2019-10-09 05:58 | NUR ---
DR FARRIS NOTIFIED OF THE POTASSIUM OF 2.8, CREATININE 1.99, AND BUN OF 39. WILL INFUSE 40 MEQ OF POTASSIUM THIS AM. PATIENT WAKES EASILY FOR VS, ROUNDING AND BLOOD DRAWS. NO OTHER ACUTE CHANGES.
--- NOTE | 2019-10-09 14:08 | NUR ---
PT SUMMARY: PT PLAN TO DISCHARGE LATER THIS AFTERNOON IF BLOOD PRESSURE STABLE, KIDNEY FUNCTION AND BLOOD SUGAR ARE UNDER CONTROL. PT C/O HEADACHE THIS MORNING RESOLVED BY TYLENOL, BP SYSTOLIC ON THE 140'S-150'S BP MEDS GIVEN AND NEW ORDER HYDRALAZINE PO THE REST OF THE VITALS STABLE. NORMAL SALINE CURRENTLY RUNNING AT 150MLS/HR FOR HYDRATION. PT CURRENTLY RESTING IN BED, CALL LIGHTS WITHIN REACH ABLE TO MAKE NEEDS KNOWN.
[2019-10-09 15:31] LABS: Bun/Creatinine Ratio 21.5 (12.0-20.0); Calcium, Blood 8.7 mg/dL (8.5-10.1); Creatinine, Blood 1.72 mg/dL (0.60-1.20); Potassium, Blood 3.2 mmol/L (3.5-5.5)
--- NOTE | 2019-10-09 17:06 | NUR ---
PT TO DISCHARGE [facility] AT 10P AWAITING FOR TO GET OFF WORK SO CAN PICK PT UP. DR DAWKINS IS AWARE ORDER TO FINISH THE BAG OF LR 1000ML CURRENTLY RUNNING AND TO MAKE SURE HE TAKES HIS BED TIME MEDICATION PRIOR TO DISCHARGE. WILL KEEP MONITORING UNTIL DISCHARGE.
[2019-10-09] MEDS ORDERED: GLIP10ER PO (18:17)
[2019-10-09] MEDS ORDERED: METO100 PO (18:17)
[2019-10-09] MEDS ORDERED: HYDRA25 PO (18:18)
[2019-10-09] MEDS ORDERED: BASAGLAR K100 UNIT/1 SC (18:19)
[2019-10-09] MEDS ORDERED: CLON.2 PO (18:23)
--- NOTE | 2019-10-09 22:01 | NUR ---
DISCHARGE DC PAPER SIGNED. DC PACKET GIVEN AND PT EDUCATED BY THIS RN. PT HAS NO ADDITIONAL QUESTIONS OR CONCERNS AT THIS TIME. PT DENIES ANY FURTHER COMPLAINTS, AND THERE HAVE BEEN NO ACUTE CHANGES IN PT ASSESSMENT THIS SHIFT. IV REMOVED WITH CATHETER INTACT. PT IS WAITING FOR HIS TO PICK HIM UP AT THIS TIME. CHERYL SRIVASTAVA CNA TO WHEEL PT OUT.
--- NOTE | 2019-10-09 22:43 | NUR ---
DISCAHRGED PT DISCHARGED WITH BELONGINGS INTACT @1691 WHEELED OUT BY CHERYL SRIVASTAVA CNA.
== END 2019-10-09 22:20 | disposition home or self-care (01) ==
LOC: ER 14:10 → PCU 14:11
PROVIDERS: Emergency Medicine; Internal Medicine; ADMIT Internal Medicine
DX: I16.0 Hypertensive urgency (principal); I12.9 Hypertensive chronic kidney disease with stage 1 through stage 4 chronic kidney disease, or unspecified chronic kidney disease; E86.0 Dehydration; E87.6 Hypokalemia; N28.9 Disorder of kidney and ureter, unspecified; E11.65 Type 2 diabetes mellitus with hyperglycemia; R11.2 Nausea with vomiting, unspecified; E11.22 Type 2 diabetes mellitus with diabetic chronic kidney disease; F41.8 Other specified anxiety disorders; N40.0 Benign prostatic hyperplasia without lower urinary tract symptoms; N18.3 Chronic kidney disease, stage 3 (moderate); Z87.891 Personal history of nicotine dependence; Z79.899 Other long term (current) drug therapy
CPT/HCPCS: 36415; 70450; 74176; 80048; 80053; 82947; 83690; 84484; 85025; 93005; 93010; 96361; 96372; 96374; 96375; 96376; 99285-25; A9270; A9270-GY; G0378; J0360; J1650; J2405; J2550; J3480; J7030; J7050; J7120

== ENCOUNTER 2019-10-11 21:41 | Emergency (ER) | payer SELFPAY ==
[~2019-10-11] VITALS: Ht 188 cm; Wt 108.9 kg
[~2019-10-11 21:41] MED LIST changes: +ATORVASTATIN CA40 MG PO; +CLON.2 PO; +GLIP10ER PO; +HYDRA25 PO; +METO100 PO; +Metformin HCl1000 MG PO
[2019-10-11 22:34] LABS: Source, Urine Clean Catch
[2019-10-11 22:34] LABS: BASOPHILS ABSOLUTE AUTO 0.06 K/mm3 (0.00-0.23); BASOPHILS PERCENT AUTO 1 % (0-2); EOSINOPHILS ABSOLUTE AUTO 0.04 K/mm3 (0.00-0.68); EOSINOPHILS PERCENT AUTO 0 % (0-6); Hematocrit 54.8 % (37.0-53.0); Hemoglobin 19.2 g/dL (13.5-17.5); IMMATURE GRAN ABSOLUTE AUTO 0.03 K/mm3 (0.00-0.10); IMMATURE GRAN PERCENT AUTO 0 % (0-1); LYMPHOCYTES ABSOLUTE AUTO 1.83 K/mm3 (0.84-5.20); LYMPHOCYTES PERCENT AUTO 18 % (21-46); MONOCYTES PERCENT AUTO 3 % (4-13); Mean Corpuscular HGB 27.5 pg (26.0-34.0); Mean Corpuscular Volume 79 fL (80-100); Mean Platelet Volume 9.9 fL (9.1-12.4); NEUTROPHILS ABSOLUTE AUTO 8.21 K/mm3 (1.96-9.15); NEUTROPHILS PERCENT AUTO 78 % (41-73); Platelet Count 321 K/mm3 (150-400); RDW Coefficient Variation 13.6 % (11.7-14.2); RDW Standard Deviation 35.8 fL (35.1-46.3); Red Blood Cell Count 6.97 M/mm3 (4.30-5.90); White Blood Cell Count 10.47 K/mm3 (4.00-11.30)
[2019-10-11 22:37] LABS: Bilirubin, Urine Neg (Neg); Blood, Urine 1+ (Neg); Glucose Qualitative, Urine 4+ (Neg); Ketones, Urine 3+ (Neg); Leukocyte Esterase, Urine Neg (Neg); Nitrite, Urine Neg (Neg); Protein, Urine 3+ (Neg); Urobilinogen, Urine NORM (Normal)
[2019-10-11 22:46] LABS: Appearance, Urine Clear (Clear); Color, Urine Pale Yellow (P-Yellow)
[2019-10-11 22:47] LABS: Alanine Aminotransfer (ALT/SGP 34 U/L (12-78); Albumin, Blood 4.8 g/dL (3.4-5.0); Alk Phos 127 U/L (50-136); Anion Gap 17 mmol/L (6-16); Aspartate Aminotrans (AST/SGOT 25 U/L (12-37); Bilirubin, Total 2.3 mg/dL (0.1-1.0); Blood Urea Nitrogen 17 mg/dL (8-24); Bun/Creatinine Ratio 13.3 (12.0-20.0); CO2, Blood 21 mmol/L (21-32); Calcium, Blood 10.4 mg/dL (8.5-10.1); Chloride, Blood 101 mmol/L (98-108); Creatinine, Blood 1.28 mg/dL (0.60-1.20); Globulin, Blood 4.9 g/dL (2.2-4.0); Glomerular Filtration Rate >60 (60-); Glucose, Blood 298 mg/dL (70-99); Potassium, Blood 3.3 mmol/L (3.5-5.5); Sodium, Blood 139 mmol/L (136-145); Total Protein, Blood 9.7 g/dL (6.4-8.2)
[2019-10-11 22:48] LABS: Bacteria Rare /hpf; Red Blood Cells, Urine 0-2 /hpf (0-2); Squamous Epithelial Cells Rare /hpf (Few); White Blood Cells, Urine Not Seen /hpf (0-5)
[2019-10-11] MEDS ORDERED: ONDA4ODT MM (23:41)
== END 2019-10-12 00:08 | disposition home or self-care (01) ==
LOC: ER 21:41
PROVIDERS: Nurse Practitioner
DX: K52.9 Noninfective gastroenteritis and colitis, unspecified (principal); K29.70 Gastritis, unspecified, without bleeding; I12.9 Hypertensive chronic kidney disease with stage 1 through stage 4 chronic kidney disease, or unspecified chronic kidney disease; N18.3 Chronic kidney disease, stage 3 (moderate); E11.22 Type 2 diabetes mellitus with diabetic chronic kidney disease; F32.9 Major depressive disorder, single episode, unspecified; F41.9 Anxiety disorder, unspecified; N40.0 Benign prostatic hyperplasia without lower urinary tract symptoms; Z87.891 Personal history of nicotine dependence; Z79.82 Long term (current) use of aspirin; Z79.4 Long term (current) use of insulin; Z79.899 Other long term (current) drug therapy
CPT/HCPCS: 36415; 51798; 74176; 80053; 81001; 83690; 85025; 96361; 96374; 96375; 99284-25; A9270-GY; J1200; J1630; J2405; J7030

== ENCOUNTER 2019-10-15 11:01 | Emergency (ER) | payer SELFPAY ==
[~2019-10-15] VITALS: Ht 188 cm; Wt 108.9 kg
[~2019-10-15 11:01] MED LIST changes: +ONDA4ODT MM
[2019-10-15 11:32] LABS: BASOPHILS ABSOLUTE AUTO 0.03 K/mm3 (0.00-0.23); BASOPHILS PERCENT AUTO 0 % (0-2); EOSINOPHILS PERCENT AUTO 0 % (0-6); Hematocrit 50.1 % (37.0-53.0); Hemoglobin 17.8 g/dL (13.5-17.5); IMMATURE GRAN ABSOLUTE AUTO 0.04 K/mm3 (0.00-0.10); IMMATURE GRAN PERCENT AUTO 0 % (0-1); LYMPHOCYTES ABSOLUTE AUTO 1.88 K/mm3 (0.84-5.20); LYMPHOCYTES PERCENT AUTO 14 % (21-46); MONOCYTES ABSOLUTE AUTO 0.97 K/mm3 (0.16-1.47); MONOCYTES PERCENT AUTO 7 % (4-13); Mean Corpuscular HGB 27.9 pg (26.0-34.0); Mean Corpuscular HGB Conc 35.5 g/dL (31.5-36.5); Mean Corpuscular Volume 78 fL (80-100); NEUTROPHILS ABSOLUTE AUTO 10.27 K/mm3 (1.96-9.15); NEUTROPHILS PERCENT AUTO 78 % (41-73); Platelet Count 370 K/mm3 (150-400); RDW Coefficient Variation 12.4 % (11.7-14.2); Red Blood Cell Count 6.39 M/mm3 (4.30-5.90); White Blood Cell Count 13.19 K/mm3 (4.00-11.30)
[2019-10-15 11:45] LABS: Albumin, Blood 3.9 g/dL (3.4-5.0); Albumin/Globulin Ratio 0.9 (0.8-1.8); Bilirubin, Total 2.1 mg/dL (0.1-1.0); Calcium, Blood 9.9 mg/dL (8.5-10.1); Creatinine, Blood 2.28 mg/dL (0.60-1.20); Globulin, Blood 4.2 g/dL (2.2-4.0); Potassium, Blood 3.4 mmol/L (3.5-5.5); Total Protein, Blood 8.1 g/dL (6.4-8.2)
[2019-10-15 15:02] LABS: Source, Urine Clean Catch
[2019-10-15 15:05] LABS: Bilirubin, Urine Neg (Neg); Blood, Urine Neg (Neg); Glucose Qualitative, Urine 4+ (Neg); Ketones, Urine 2+ (Neg); Leukocyte Esterase, Urine Neg (Neg); Nitrite, Urine Neg (Neg); Protein, Urine 2+ (Neg); Specific Gravity, Urine 1.015 (1.003-1.022); Urobilinogen, Urine NORM (Normal)
[2019-10-15 15:15] LABS: Appearance, Urine Clear (Clear); Color, Urine Yellow (P-Yellow)
[2019-10-15 15:18] LABS: Bacteria Rare /hpf; Mucus Light (0-Heavy); Red Blood Cells, Urine 0-2 /hpf (0-2); Squamous Epithelial Cells Rare /hpf (Few); White Blood Cells, Urine 0-2 /hpf (0-5)
[2019-10-15 15:27] LABS: U Amphetamine Screen Not Detected; U Barbituate Screen Not Detected; U Benzodiazapine Screen Not Detected; U Buprenorphine Screen Not Detected; U Cannabinoids Screen DETECTED; U Cocaine Screen Not Detected; U Methadone Screen Not Detected; U Methamphetamine Screen Not Detected; U Opiates Screen Not Detected; U Oxycodone Screen Not Detected; U Phencyclidine Screen Not Detected; U Propoxyphene Screen Not Detected
[2019-10-15] MEDS ORDERED: Sucralfate1 GM PO (16:25)
[2019-10-15] MEDS ORDERED: PHENERGAN25 MG PR (16:25)
[2019-10-15] MEDS ORDERED: Protonix40 MG PO (16:25)
== END 2019-10-15 17:00 | disposition home or self-care (01) ==
LOC: ER 11:01
PROVIDERS: Emergency Medicine
DX: E11.22 Type 2 diabetes mellitus with diabetic chronic kidney disease (principal); I12.9 Hypertensive chronic kidney disease with stage 1 through stage 4 chronic kidney disease, or unspecified chronic kidney disease; N18.3 Chronic kidney disease, stage 3 (moderate); E11.65 Type 2 diabetes mellitus with hyperglycemia; K29.70 Gastritis, unspecified, without bleeding; E86.0 Dehydration; F32.9 Major depressive disorder, single episode, unspecified; F41.9 Anxiety disorder, unspecified; N40.0 Benign prostatic hyperplasia without lower urinary tract symptoms; Z79.82 Long term (current) use of aspirin; Z79.899 Other long term (current) drug therapy; Z79.4 Long term (current) use of insulin; Z87.891 Personal history of nicotine dependence
CPT/HCPCS: 36415; 74018; 80053; 81001; 82010; 82800; 82947; 83690; 85025; 93005; 93010; 96361; 96374; 96375; 99284-25; C9113; J1200; J1630; J1815; J7030

== ENCOUNTER 2019-12-22 23:18 | Emergency (ER) | payer SELFPAY ==
[~2019-12-22] VITALS: Ht 188 cm; Wt 113.4 kg
[~2019-12-22 23:18] MED LIST changes: +PHENERGAN25 MG PR; +Protonix40 MG PO; +Sucralfate1 GM PO
[2019-12-23 00:22] LABS: BASOPHILS ABSOLUTE AUTO 0.03 K/mm3 (0.00-0.23); BASOPHILS PERCENT AUTO 0 % (0-2); EOSINOPHILS ABSOLUTE AUTO 0.26 K/mm3 (0.00-0.68); EOSINOPHILS PERCENT AUTO 3 % (0-6); Hematocrit 45.8 % (37.0-53.0); Hemoglobin 15.9 g/dL (13.5-17.5); IMMATURE GRAN ABSOLUTE AUTO 0.02 K/mm3 (0.00-0.10); IMMATURE GRAN PERCENT AUTO 0 % (0-1); LYMPHOCYTES ABSOLUTE AUTO 3.16 K/mm3 (0.84-5.20); LYMPHOCYTES PERCENT AUTO 36 % (21-46); MONOCYTES ABSOLUTE AUTO 0.54 K/mm3 (0.16-1.47); MONOCYTES PERCENT AUTO 6 % (4-13); Mean Corpuscular HGB 27.9 pg (26.0-34.0); Mean Corpuscular HGB Conc 34.7 g/dL (31.5-36.5); Mean Corpuscular Volume 81 fL (80-100); Mean Platelet Volume 9.6 fL (9.1-12.4); NEUTROPHILS ABSOLUTE AUTO 4.79 K/mm3 (1.96-9.15); NEUTROPHILS PERCENT AUTO 55 % (41-73); Platelet Count 254 K/mm3 (150-400); RDW Coefficient Variation 13.5 % (11.7-14.2); RDW Standard Deviation 38.8 fL (35.1-46.3); Red Blood Cell Count 5.69 M/mm3 (4.30-5.90)
[2019-12-23] MEDS ORDERED: METF500 PO (00:28)
[2019-12-23 00:41] LABS: Bun/Creatinine Ratio 13.4 (12.0-20.0); Calcium, Blood 9.4 mg/dL (8.5-10.1); Creatinine, Blood 1.34 mg/dL (0.60-1.20); Globulin, Blood 4.1 g/dL (2.2-4.0); Total Protein, Blood 8.1 g/dL (6.4-8.2)
[2019-12-23] MEDS ORDERED: Magic Bullet10 MG PR (03:21)
[2019-12-23] MEDS ORDERED: Magnesium Citr296 ML PO (03:21)
== END 2019-12-23 03:44 | disposition home or self-care (01) ==
LOC: ER 23:18
PROVIDERS: Emergency Medicine
DX: K59.00 Constipation, unspecified (principal); R06.02 Shortness of breath; Z79.82 Long term (current) use of aspirin; Z79.4 Long term (current) use of insulin; Z79.899 Other long term (current) drug therapy; E11.22 Type 2 diabetes mellitus with diabetic chronic kidney disease; I12.9 Hypertensive chronic kidney disease with stage 1 through stage 4 chronic kidney disease, or unspecified chronic kidney disease; N18.3 Chronic kidney disease, stage 3 (moderate); F32.9 Major depressive disorder, single episode, unspecified; F41.9 Anxiety disorder, unspecified; E78.5 Hyperlipidemia, unspecified; Z87.891 Personal history of nicotine dependence
CPT/HCPCS: 36415; 74022; 80053; 83690; 85025; 93005; 93010; 96374; 96375; 99284-25; A9270; J0360; J2550

== ENCOUNTER 2020-11-28 13:10 | Emergency (ER) | payer MEDICARE, OTHER ==
[~2020-11-28] VITALS: Ht 188 cm; Wt 115.7 kg
[~2020-11-28 13:10] MED LIST changes: +ATORVASTATIN CA40 M1 PO; +Acetaminophen650 M1 PO; +Clonidine HCl0.1 MG PO; +EXCEDRIN EXTRA1 EACH PO; +FISH OIL 1,0001 EAC7 PO; +FURO40 PO; +LOSA50 PO; +METF500 PO; +Magic Bullet10 MG PR; +Magnesium Citr296 ML PO; +POTCHL20ER PO; +VERA240ER PO
[2020-11-28 13:40] LABS: BASOPHILS ABSOLUTE AUTO 0.05 K/mm3 (0.00-0.23); BASOPHILS PERCENT AUTO 1 % (0-2); EOSINOPHILS PERCENT AUTO 4 % (0-6); Hematocrit 43.5 % (37.0-53.0); Hemoglobin 14.9 g/dL (13.5-17.5); IMMATURE GRAN ABSOLUTE AUTO 0.01 K/mm3 (0.00-0.10); IMMATURE GRAN PERCENT AUTO 0 % (0-1); LYMPHOCYTES ABSOLUTE AUTO 2.24 K/mm3 (0.84-5.20); LYMPHOCYTES PERCENT AUTO 29 % (21-46); MONOCYTES ABSOLUTE AUTO 0.37 K/mm3 (0.16-1.47); MONOCYTES PERCENT AUTO 5 % (4-13); Mean Corpuscular HGB 28.2 pg (26.0-34.0); Mean Corpuscular HGB Conc 34.3 g/dL (31.5-36.5); Mean Corpuscular Volume 82 fL (80-100); Mean Platelet Volume 9.4 fL (9.1-12.4); NEUTROPHILS ABSOLUTE AUTO 4.85 K/mm3 (1.96-9.15); NEUTROPHILS PERCENT AUTO 62 % (41-73); Platelet Count 257 K/mm3 (150-400); RDW Coefficient Variation 13.6 % (11.7-14.2); RDW Standard Deviation 39.7 fL (35.1-46.3); Red Blood Cell Count 5.29 M/mm3 (4.30-5.90); White Blood Cell Count 7.82 K/mm3 (4.00-11.30)
[2020-11-28 13:53] LABS: International Normalized Ratio 0.99; Prothrombin Time Results 10.7 Sec (9.7-11.5)
[2020-11-28 14:01] LABS: Alanine Aminotransfer (ALT/SGP 29 U/L (12-78); Albumin, Blood 3.9 g/dL (3.4-5.0); Alk Phos 85 U/L (50-136); Anion Gap 5 mmol/L (6-16); Aspartate Aminotrans (AST/SGOT 20 U/L (12-37); Bilirubin, Total 1.1 mg/dL (0.1-1.0); Blood Urea Nitrogen 20 mg/dL (8-24); Bun/Creatinine Ratio 10.9 (12.0-20.0); CO2, Blood 29 mmol/L (21-32); Calcium, Blood 9.2 mg/dL (8.5-10.1); Chloride, Blood 106 mmol/L (98-108); Creatinine, Blood 1.83 mg/dL (0.60-1.20); Glomerular Filtration Rate 41 (60-); Glucose, Blood 140 mg/dL (70-99); Potassium, Blood 3.8 mmol/L (3.5-5.5); Sodium, Blood 140 mmol/L (136-145); Total Protein, Blood 7.9 g/dL (6.4-8.2); Troponin I <0.015 ng/mL (0.000-0.040)
[2020-11-28] MEDS ORDERED: LAMOTRIGINE25 M4 PO (15:54)
== END 2020-11-28 19:59 | disposition left against medical advice (07) ==
LOC: ER 13:10
PROVIDERS: Physician Assistant
DX: I10 Essential (primary) hypertension (principal); E11.9 Type 2 diabetes mellitus without complications; Z79.82 Long term (current) use of aspirin; Z79.899 Other long term (current) drug therapy; Z87.891 Personal history of nicotine dependence; R06.02 Shortness of breath; R94.31 Abnormal electrocardiogram [ECG] [EKG]; R06.00 Dyspnea, unspecified; I08.0 Rheumatic disorders of both mitral and aortic valves; I77.810 Thoracic aortic ectasia
CPT/HCPCS: 36415; 80053; 84484; 85025; 85610; 93005; 93010; 93306; 96374; 99283-25; A9270

== ENCOUNTER 2020-12-05 13:34 | Emergency (ER) | payer MEDICARE ==
[~2020-12-05] VITALS: Ht 188 cm; Wt 115.7 kg
[~2020-12-05 13:34] MED LIST changes: +LAMOTRIGINE25 M4 PO
[2020-12-05 14:30] LABS: Source, Urine Voided
[2020-12-05 14:33] LABS: BASOPHILS ABSOLUTE AUTO 0.06 K/mm3 (0.00-0.23); BASOPHILS PERCENT AUTO 0 % (0-2); EOSINOPHILS ABSOLUTE AUTO 0.09 K/mm3 (0.00-0.68); EOSINOPHILS PERCENT AUTO 1 % (0-6); Hematocrit 44.7 % (37.0-53.0); Hemoglobin 15.3 g/dL (13.5-17.5); IMMATURE GRAN ABSOLUTE AUTO 0.08 K/mm3 (0.00-0.10); IMMATURE GRAN PERCENT AUTO 1 % (0-1); LYMPHOCYTES PERCENT AUTO 16 % (21-46); MONOCYTES ABSOLUTE AUTO 0.75 K/mm3 (0.16-1.47); MONOCYTES PERCENT AUTO 4 % (4-13); Mean Corpuscular HGB Conc 34.2 g/dL (31.5-36.5); Mean Corpuscular Volume 82 fL (80-100); Mean Platelet Volume 9.8 fL (9.1-12.4); NEUTROPHILS ABSOLUTE AUTO 13.72 K/mm3 (1.96-9.15); NEUTROPHILS PERCENT AUTO 79 % (41-73); Platelet Count 264 K/mm3 (150-400); RDW Coefficient Variation 13.7 % (11.7-14.2); RDW Standard Deviation 39.8 fL (35.1-46.3); Red Blood Cell Count 5.46 M/mm3 (4.30-5.90)
[2020-12-05 14:34] LABS: Appearance, Urine Clear (Clear); Bilirubin, Urine Neg (Neg); Blood, Urine 2+ (Neg); Glucose Qualitative, Urine 4+ (Neg); Ketones, Urine 3+ (Neg); Leukocyte Esterase, Urine Neg (Neg); Nitrite, Urine Neg (Neg); Protein, Urine 3+ (Neg); Urobilinogen, Urine NORM (Normal)
[2020-12-05 14:41] LABS: Color, Urine Pale Yellow (P-Yellow)
[2020-12-05 14:42] LABS: Bacteria Few /hpf; Red Blood Cells, Urine 0-2 /hpf (0-2); Squamous Epithelial Cells Not Seen /hpf (Few)
[2020-12-05 14:43] LABS: White Blood Cells, Urine Rare /hpf (0-5)
[2020-12-05 14:45] LABS: U Amphetamine Screen Not Detected; U Barbituate Screen Not Detected; U Benzodiazapine Screen Not Detected; U Buprenorphine Screen Not Detected; U Cannabinoids Screen DETECTED; U Cocaine Screen Not Detected; U Methadone Screen Not Detected; U Methamphetamine Screen Not Detected; U Opiates Screen Not Detected; U Oxycodone Screen Not Detected; U Phencyclidine Screen Not Detected; U Propoxyphene Screen Not Detected
[2020-12-05 14:48] LABS: Albumin, Blood 4.2 g/dL (3.4-5.0); Albumin/Globulin Ratio 1.1 (0.8-1.8); Bilirubin, Total 1.7 mg/dL (0.1-1.0); Bun/Creatinine Ratio 11.8 (12.0-20.0); Calcium, Blood 9.5 mg/dL (8.5-10.1); Creatinine, Blood 1.69 mg/dL (0.60-1.20); Globulin, Blood 3.9 g/dL (2.2-4.0); Potassium, Blood 3.3 mmol/L (3.5-5.5); Total Protein, Blood 8.1 g/dL (6.4-8.2)
[2020-12-05] MEDS ORDERED: PROM25 PO (18:35)
== END 2020-12-05 19:08 | disposition home or self-care (01) ==
LOC: ER 13:34
PROVIDERS: Emergency Medicine
DX: R10.9 Unspecified abdominal pain (principal); R11.2 Nausea with vomiting, unspecified; R19.7 Diarrhea, unspecified; R07.9 Chest pain, unspecified; E11.9 Type 2 diabetes mellitus without complications; I10 Essential (primary) hypertension; Z79.02 Long term (current) use of antithrombotics/antiplatelets; Z79.84 Long term (current) use of oral hypoglycemic drugs; Z87.891 Personal history of nicotine dependence
CPT/HCPCS: 74176; 80053; 81001; 82947; 83690; 85025; 93005; 93010; 96374; 96375; 96376; 99285-25; A9270; J0360; J1170; J1200; J1790; J2765; J7120

== ENCOUNTER 2020-12-10 16:07 | Observation (INO) | payer MEDICARE ==
[~2020-12-10] VITALS: Ht 188 cm; Wt 112.1 kg
[~2020-12-10 16:07] MED LIST changes: +PROM25 PO
[2020-12-10] MEDS ORDERED: TAMS.4ER PO (16:25)
[2020-12-10 16:40] LABS: BASOPHILS ABSOLUTE AUTO 0.04 K/mm3 (0.00-0.23); BASOPHILS PERCENT AUTO 0 % (0-2); EOSINOPHILS ABSOLUTE AUTO 0.03 K/mm3 (0.00-0.68); EOSINOPHILS PERCENT AUTO 0 % (0-6); Hematocrit 48.1 % (37.0-53.0); Hemoglobin 16.9 g/dL (13.5-17.5); IMMATURE GRAN ABSOLUTE AUTO 0.04 K/mm3 (0.00-0.10); IMMATURE GRAN PERCENT AUTO 0 % (0-1); LYMPHOCYTES ABSOLUTE AUTO 3.65 K/mm3 (0.84-5.20); LYMPHOCYTES PERCENT AUTO 29 % (21-46); MONOCYTES ABSOLUTE AUTO 0.98 K/mm3 (0.16-1.47); MONOCYTES PERCENT AUTO 8 % (4-13); Mean Corpuscular HGB Conc 35.1 g/dL (31.5-36.5); Mean Corpuscular Volume 80 fL (80-100); Mean Platelet Volume 9.9 fL (9.1-12.4); NEUTROPHILS ABSOLUTE AUTO 7.78 K/mm3 (1.96-9.15); NEUTROPHILS PERCENT AUTO 62 % (41-73); Platelet Count 335 K/mm3 (150-400); RDW Standard Deviation 37.2 fL (35.1-46.3); Red Blood Cell Count 6.04 M/mm3 (4.30-5.90); White Blood Cell Count 12.52 K/mm3 (4.00-11.30)
[2020-12-10 16:42] LABS: Bilirubin, Total 1.7 mg/dL (0.1-1.0); Bun/Creatinine Ratio 16.9 (12.0-20.0); Calcium, Blood 9.7 mg/dL (8.5-10.1); Creatinine, Blood 2.66 mg/dL (0.60-1.20); Potassium, Blood 3.2 mmol/L (3.5-5.5)
[2020-12-10 19:53] LABS: Source, Urine Clean Catch
[2020-12-10 19:57] LABS: Bilirubin, Urine Neg (Neg); Blood, Urine 1+ (Neg); Glucose Qualitative, Urine 3+ (Neg); Ketones, Urine Neg (Neg); Leukocyte Esterase, Urine Neg (Neg); Nitrite, Urine Neg (Neg); Protein, Urine 3+ (Neg); Specific Gravity, Urine 1.015 (1.003-1.022); Urobilinogen, Urine NORM (Normal)
[2020-12-10 20:10] LABS: Appearance, Urine Clear (Clear); Color, Urine Yellow (P-Yellow); Red Blood Cells, Urine 0-2 /hpf (0-2); White Blood Cells, Urine Not Seen /hpf (0-5)
[2020-12-10 20:11] LABS: Bacteria Not Seen /hpf; Squamous Epithelial Cells Not Seen /hpf (Few)
[2020-12-10 20:13] LABS: U Amphetamine Screen Not Detected; U Barbituate Screen Not Detected; U Benzodiazapine Screen Not Detected; U Buprenorphine Screen Not Detected; U Cannabinoids Screen DETECTED; U Cocaine Screen Not Detected; U Methadone Screen Not Detected; U Methamphetamine Screen Not Detected; U Opiates Screen Not Detected; U Oxycodone Screen Not Detected; U Phencyclidine Screen Not Detected; U Propoxyphene Screen Not Detected
--- NOTE | 2020-12-11 04:18 | NUR ---
SHIFT SUMMARY- PT. NEW ADMISSION FROM ED. A&OX4, WITH COMPLAINTS OF DIZZINESS AND WEAKNESS. PT. ABLE TO USE URINAL AT BEDSIDE. BP ELEVATED T/O THE NIGHT. HOSPITALIST NOTIFIED AND PT. GIVEN SEVERAL ANTIHYPERTENSIVES T/O THE NIGHT WITH NO EFFECT UNTIL EARLY THIS AM. DENIED ANY PAIN DURING THE NIGHT. PT. ASLEEP T/O THE NIGHT, NO APPARENT DISTRESS NOTED. CALL LIGHT WITHIN REACH. WILL CONT TO MONITOR.
[2020-12-11 05:02] LABS: BASOPHILS ABSOLUTE AUTO 0.02 K/mm3 (0.00-0.23); BASOPHILS PERCENT AUTO 0 % (0-2); EOSINOPHILS ABSOLUTE AUTO 0.03 K/mm3 (0.00-0.68); EOSINOPHILS PERCENT AUTO 0 % (0-6); Hematocrit 40.9 % (37.0-53.0); Hemoglobin 14.7 g/dL (13.5-17.5); IMMATURE GRAN ABSOLUTE AUTO 0.03 K/mm3 (0.00-0.10); IMMATURE GRAN PERCENT AUTO 0 % (0-1); LYMPHOCYTES ABSOLUTE AUTO 2.57 K/mm3 (0.84-5.20); LYMPHOCYTES PERCENT AUTO 27 % (21-46); MONOCYTES ABSOLUTE AUTO 0.69 K/mm3 (0.16-1.47); MONOCYTES PERCENT AUTO 7 % (4-13); Mean Corpuscular HGB 28.6 pg (26.0-34.0); Mean Corpuscular HGB Conc 35.9 g/dL (31.5-36.5); Mean Corpuscular Volume 80 fL (80-100); Mean Platelet Volume 9.8 fL (9.1-12.4); NEUTROPHILS ABSOLUTE AUTO 6.26 K/mm3 (1.96-9.15); NEUTROPHILS PERCENT AUTO 65 % (41-73); Platelet Count 211 K/mm3 (150-400); RDW Coefficient Variation 12.9 % (11.7-14.2); RDW Standard Deviation 36.7 fL (35.1-46.3); Red Blood Cell Count 5.14 M/mm3 (4.30-5.90)
[2020-12-11 05:30] LABS: Albumin, Blood 3.1 g/dL (3.4-5.0); Bilirubin, Total 1.3 mg/dL (0.1-1.0); Bun/Creatinine Ratio 17.6 (12.0-20.0); Calcium, Blood 8.3 mg/dL (8.5-10.1); Creatinine, Blood 2.22 mg/dL (0.60-1.20); Potassium, Blood 3.1 mmol/L (3.5-5.5); Total Protein, Blood 6.1 g/dL (6.4-8.2); Troponin I 0.041 ng/mL (0.000-0.040)
[2020-12-11 12:31] LABS: Troponin I 0.038 ng/mL (0.000-0.040)
--- NOTE | 2020-12-11 14:18 | NUR ---
Ecocardiogram performed by Marielle Casanova under my supervision.
--- NOTE | 2020-12-11 17:55 | NUR ---
SHIFT SUMMARY PATIENT DENIES PAIN, NAUSEA, AND SHORTNESS OF BREATH. PATIENT UP SBA TO BR. DIET ADVANCED TO REGULAR TEXTURE, TOLERATING WELL. RENAL ULTRASOUND AND ECHO COMPLETED TODAY. FAMILY VISITED IN AFTERNOON. PLEASANT AND COOPERATIVE WITH CARE.
[2020-12-12 05:10] LABS: Calcium, Blood 8.5 mg/dL (8.5-10.1); Creatinine, Blood 1.94 mg/dL (0.60-1.20); Potassium, Blood 3.4 mmol/L (3.5-5.5)
--- NOTE | 2020-12-12 06:38 | NUR ---
SHIFT SUMMARY PT IS A 60 Y/O MALE, ADMITTED FOR ARF, POSITIVE ORTHOSTATICS. HE IS A&O X 4, SBA TO THE BATHROOM. PT HAD ELEVATED BP DURING THE NIGHT, IN THE 180-190S SYSTOLIC. MEDICATED WITH PRN HYDRALAZINE TWICE, AND WITH SCHEDULED HS BP MEDS. ALL OTHER VITALS STABLE, TELE SHOWED NSR IN THE 80S. PT DID REPORT A SESAY, BUT REFUSED ANY PAIN MEDS. HE WAS MEDICATED ONCE FOR R WRIST PAIN WITH PRN FENTANYL. NO C/O ACUTE NAUSEA OR SOB. NO OTHER ACUTE CHANGES IN PT CONDITION NOTED DURING THE NIGHT. WILL CONTINUE TO MONITOR AND TREAT PER EMAR UNTIL HAND OFF TO DAY SHIFT RN.
[2020-12-12] MEDS ORDERED: CLON.1 PO (13:56)
--- NOTE | 2020-12-12 15:31 | NUR ---
DISCHARGE DISCHARGE MEDICATIONS AND INSTRUCTIONS EXPLAINED TO PATIENT. PATIENT STATED UNDERSTANDING. FOLLOW UP WITH PCP SCHEDULED BY PATIENT. IV REMOVED WITHOUT ISSUE. BELONGINGS WITH PATIENT. PATIENT TRANSFERED TO PRIVATE VEHICLE VIA WHEELCHAIR.
== END 2020-12-12 14:47 | disposition home or self-care (01) ==
LOC: ER 16:07 → MEDS 19:44
PROVIDERS: Internal Medicine; Physician Assistant; Student in an Organized Health Care Education/Training Program; ADMIT Internal Medicine
DX: I95.1 Orthostatic hypotension (principal); N17.9 Acute kidney failure, unspecified; I21.A1 Myocardial infarction type 2; R11.2 Nausea with vomiting, unspecified; R19.7 Diarrhea, unspecified; E86.0 Dehydration; E87.6 Hypokalemia; I16.0 Hypertensive urgency; S62.316A Displaced fracture of base of fifth metacarpal bone, right hand, initial encounter for closed fracture; E11.22 Type 2 diabetes mellitus with diabetic chronic kidney disease; I12.9 Hypertensive chronic kidney disease with stage 1 through stage 4 chronic kidney disease, or unspecified chronic kidney disease; N18.30 Chronic kidney disease, stage 3 unspecified; N40.0 Benign prostatic hyperplasia without lower urinary tract symptoms; R94.31 Abnormal electrocardiogram [ECG] [EKG]; F32.9 Major depressive disorder, single episode, unspecified; F41.9 Anxiety disorder, unspecified; W19.XXXA Unspecified fall, initial encounter; Z79.82 Long term (current) use of aspirin; Z79.84 Long term (current) use of oral hypoglycemic drugs; Z87.891 Personal history of nicotine dependence
CPT/HCPCS: 29125; 36415; 70450; 73130; 76770; 80048; 80053; 81001; 82550; 82947; 83880; 84484; 85025; 93005; 93010; 93308; 93321; 96372; 96375; 96376; 99285-25; A9270; C9113; G0378; G0480; J0360; J1650; J3010; J3480; J7030; J7120

== ENCOUNTER 2021-02-17 10:02 | Emergency (ER) | payer MEDICARE, OTHER ==
[~2021-02-17] VITALS: Ht 188 cm; Wt 113.4 kg
[~2021-02-17 10:02] MED LIST changes: +CLON.1 PO
[2021-02-17 10:39] LABS: BASOPHILS ABSOLUTE AUTO 0.02 K/mm3 (0.00-0.23); BASOPHILS PERCENT AUTO 0 % (0-2); EOSINOPHILS PERCENT AUTO 0 % (0-6); Hematocrit 50.9 % (37.0-53.0); Hemoglobin 18.1 g/dL (13.5-17.5); IMMATURE GRAN ABSOLUTE AUTO 0.04 K/mm3 (0.00-0.10); IMMATURE GRAN PERCENT AUTO 0 % (0-1); LYMPHOCYTES ABSOLUTE AUTO 1.72 K/mm3 (0.84-5.20); LYMPHOCYTES PERCENT AUTO 14 % (21-46); MONOCYTES ABSOLUTE AUTO 0.68 K/mm3 (0.16-1.47); MONOCYTES PERCENT AUTO 6 % (4-13); Mean Corpuscular HGB Conc 35.6 g/dL (31.5-36.5); Mean Corpuscular Volume 79 fL (80-100); Mean Platelet Volume 9.5 fL (9.1-12.4); NEUTROPHILS ABSOLUTE AUTO 9.67 K/mm3 (1.96-9.15); NEUTROPHILS PERCENT AUTO 80 % (41-73); Platelet Count 335 K/mm3 (150-400); RDW Coefficient Variation 12.6 % (11.7-14.2); RDW Standard Deviation 35.5 fL (35.1-46.3); Red Blood Cell Count 6.46 M/mm3 (4.30-5.90); White Blood Cell Count 12.13 K/mm3 (4.00-11.30)
[2021-02-17 10:51] LABS: Source, Urine Clean Catch
[2021-02-17 10:56] LABS: Bilirubin, Urine Neg (Neg); Blood, Urine 4+ (Neg); Glucose Qualitative, Urine 4+ (Neg); Ketones, Urine 3+ (Neg); Leukocyte Esterase, Urine Neg (Neg); Nitrite, Urine Neg (Neg); Protein, Urine 3+ (Neg); Specific Gravity, Urine 1.015 (1.003-1.022); Urobilinogen, Urine NORM (Normal)
[2021-02-17 11:00] LABS: Albumin, Blood 4.4 g/dL (3.4-5.0); Bilirubin, Total 2.7 mg/dL (0.1-1.0); Bun/Creatinine Ratio 14.4 (12.0-20.0); Calcium, Blood 10.4 mg/dL (8.5-10.1); Creatinine, Blood 1.87 mg/dL (0.60-1.20); Globulin, Blood 4.6 g/dL (2.2-4.0); Potassium, Blood 3.9 mmol/L (3.5-5.5)
[2021-02-17 11:16] LABS: Appearance, Urine Clear (Clear); Color, Urine Yellow (P-Yellow)
[2021-02-17 11:18] LABS: Bacteria Few /hpf; Red Blood Cells, Urine 0-2 /hpf (0-2); Squamous Epithelial Cells Rare /hpf (Few); White Blood Cells, Urine 0-2 /hpf (0-5)
[2021-02-17] MEDS ORDERED: PROM25 PO (14:12)
== END 2021-02-17 14:21 | disposition home or self-care (01) ==
LOC: ER 10:02
PROVIDERS: Physician Assistant
DX: A08.4 Viral intestinal infection, unspecified (principal); E11.65 Type 2 diabetes mellitus with hyperglycemia; I12.9 Hypertensive chronic kidney disease with stage 1 through stage 4 chronic kidney disease, or unspecified chronic kidney disease; E11.22 Type 2 diabetes mellitus with diabetic chronic kidney disease; N18.30 Chronic kidney disease, stage 3 unspecified; Z79.899 Other long term (current) drug therapy
CPT/HCPCS: 36415; 71045; 76705; 80053; 81001; 82947; 83690; 84484; 85025; 93005; 93010; 96374; 96375; 99284-25; J1170; J1815; J2405; J7030

== ENCOUNTER 2021-02-19 17:10 | Emergency (ER) | payer MEDICARE ==
[~2021-02-19] VITALS: Ht 188 cm; Wt 113.4 kg
[2021-02-19 18:04] LABS: BASOPHILS ABSOLUTE AUTO 0.02 K/mm3 (0.00-0.23); BASOPHILS PERCENT AUTO 0 % (0-2); EOSINOPHILS PERCENT AUTO 0 % (0-6); Hematocrit 46.9 % (37.0-53.0); Hemoglobin 16.8 g/dL (13.5-17.5); IMMATURE GRAN ABSOLUTE AUTO 0.03 K/mm3 (0.00-0.10); IMMATURE GRAN PERCENT AUTO 0 % (0-1); LYMPHOCYTES ABSOLUTE AUTO 2.12 K/mm3 (0.84-5.20); LYMPHOCYTES PERCENT AUTO 22 % (21-46); MONOCYTES ABSOLUTE AUTO 0.81 K/mm3 (0.16-1.47); MONOCYTES PERCENT AUTO 9 % (4-13); Mean Corpuscular HGB 28.1 pg (26.0-34.0); Mean Corpuscular HGB Conc 35.8 g/dL (31.5-36.5); Mean Corpuscular Volume 78 fL (80-100); Mean Platelet Volume 9.7 fL (9.1-12.4); NEUTROPHILS PERCENT AUTO 69 % (41-73); Platelet Count 316 K/mm3 (150-400); RDW Coefficient Variation 12.2 % (11.7-14.2); RDW Standard Deviation 34.6 fL (35.1-46.3); Red Blood Cell Count 5.98 M/mm3 (4.30-5.90); White Blood Cell Count 9.58 K/mm3 (4.00-11.30)
[2021-02-19 18:32] LABS: Albumin, Blood 3.9 g/dL (3.4-5.0); Bilirubin, Total 1.9 mg/dL (0.1-1.0); Bun/Creatinine Ratio 13.1 (12.0-20.0); Calcium, Blood 9.4 mg/dL (8.5-10.1); Creatinine, Blood 1.98 mg/dL (0.60-1.20); Globulin, Blood 3.8 g/dL (2.2-4.0); Total Protein, Blood 7.7 g/dL (6.4-8.2)
[2021-02-19 20:24] LABS: Source, Urine Clean Catch
[2021-02-19 20:27] LABS: Bilirubin, Urine Neg (Neg); Blood, Urine 2+ (Neg); Glucose Qualitative, Urine 4+ (Neg); Ketones, Urine 2+ (Neg); Leukocyte Esterase, Urine Neg (Neg); Nitrite, Urine Neg (Neg); Protein, Urine 4+ (Neg); Urobilinogen, Urine NORM (Normal)
[2021-02-19 20:34] LABS: Appearance, Urine Clear (Clear); Color, Urine Pale Yellow (P-Yellow)
[2021-02-19 20:39] LABS: Bacteria Rare /hpf; Red Blood Cells, Urine 0-2 /hpf (0-2); Squamous Epithelial Cells Few /hpf (Few); White Blood Cells, Urine 0-2 /hpf (0-5)
[2021-02-19] MEDS ORDERED: OMEP20ER PO (22:01)
== END 2021-02-19 22:51 | disposition home or self-care (01) ==
LOC: ER 17:10
PROVIDERS: Physician Assistant
DX: K52.9 Noninfective gastroenteritis and colitis, unspecified (principal); E87.6 Hypokalemia; E11.65 Type 2 diabetes mellitus with hyperglycemia; I12.9 Hypertensive chronic kidney disease with stage 1 through stage 4 chronic kidney disease, or unspecified chronic kidney disease; E11.22 Type 2 diabetes mellitus with diabetic chronic kidney disease; N18.30 Chronic kidney disease, stage 3 unspecified; Z79.82 Long term (current) use of aspirin; Z79.84 Long term (current) use of oral hypoglycemic drugs; Z79.899 Other long term (current) drug therapy; Z87.891 Personal history of nicotine dependence
CPT/HCPCS: 36415; 74177; 80053; 81001; 85025; 96374-59; 96375; 99284-25; A9270; J1170; J2405; J7030; Q9967

== ENCOUNTER 2021-02-21 18:35 | Emergency (ER) | payer MEDICARE ==
[~2021-02-21] VITALS: Ht 188 cm; Wt 113.4 kg
[~2021-02-21 18:35] MED LIST changes: +OMEP20ER PO
[2021-02-21 19:10] LABS: BASOPHILS ABSOLUTE AUTO 0.03 K/mm3 (0.00-0.23); BASOPHILS PERCENT AUTO 0 % (0-2); EOSINOPHILS ABSOLUTE AUTO 0.05 K/mm3 (0.00-0.68); EOSINOPHILS PERCENT AUTO 1 % (0-6); Hematocrit 43.5 % (37.0-53.0); Hemoglobin 15.8 g/dL (13.5-17.5); IMMATURE GRAN ABSOLUTE AUTO 0.04 K/mm3 (0.00-0.10); IMMATURE GRAN PERCENT AUTO 0 % (0-1); LYMPHOCYTES ABSOLUTE AUTO 1.27 K/mm3 (0.84-5.20); LYMPHOCYTES PERCENT AUTO 12 % (21-46); MONOCYTES ABSOLUTE AUTO 0.67 K/mm3 (0.16-1.47); MONOCYTES PERCENT AUTO 6 % (4-13); Mean Corpuscular HGB 28.6 pg (26.0-34.0); Mean Corpuscular HGB Conc 36.3 g/dL (31.5-36.5); Mean Corpuscular Volume 79 fL (80-100); Mean Platelet Volume 9.3 fL (9.1-12.4); NEUTROPHILS ABSOLUTE AUTO 8.42 K/mm3 (1.96-9.15); NEUTROPHILS PERCENT AUTO 80 % (41-73); Platelet Count 209 K/mm3 (150-400); RDW Coefficient Variation 12.3 % (11.7-14.2); RDW Standard Deviation 34.9 fL (35.1-46.3); Red Blood Cell Count 5.53 M/mm3 (4.30-5.90); White Blood Cell Count 10.48 K/mm3 (4.00-11.30)
[2021-02-21 19:39] LABS: Albumin, Blood 3.5 g/dL (3.4-5.0); Bun/Creatinine Ratio 10.2 (12.0-20.0); Calcium, Blood 8.9 mg/dL (8.5-10.1); Creatinine, Blood 2.06 mg/dL (0.60-1.20); Globulin, Blood 3.6 g/dL (2.2-4.0); Potassium, Blood 2.9 mmol/L (3.5-5.5); Total Protein, Blood 7.1 g/dL (6.4-8.2)
[2021-02-22] MEDS ORDERED: POTA20PAC PO (00:10)
[2021-02-22] MEDS ORDERED: PROC5 PO (00:10)
== END 2021-02-22 00:43 | disposition home or self-care (01) ==
LOC: ER 18:35
PROVIDERS: Emergency Medicine
DX: R11.2 Nausea with vomiting, unspecified (principal); E87.6 Hypokalemia; R94.31 Abnormal electrocardiogram [ECG] [EKG]; E11.22 Type 2 diabetes mellitus with diabetic chronic kidney disease; I12.9 Hypertensive chronic kidney disease with stage 1 through stage 4 chronic kidney disease, or unspecified chronic kidney disease; N18.30 Chronic kidney disease, stage 3 unspecified; Z79.84 Long term (current) use of oral hypoglycemic drugs; Z79.899 Other long term (current) drug therapy
CPT/HCPCS: 80053; 83735; 85025; 93005; 93010; 96365; 96366; 96375; 99284-25; A9270; J0780; J3480; J7030

== ENCOUNTER 2021-07-30 14:32 | Emergency (ER) | payer MEDICARE, OTHER ==
[~2021-07-30] VITALS: Ht 188 cm; Wt 111.1 kg
[~2021-07-30 14:32] MED LIST changes: +POTA20PAC PO; +PROC5 PO
[2021-07-30 15:23] LABS: White Blood Cell Count 10.96 K/mm3 (4.00-11.30)
[2021-07-30 15:24] LABS: BASOPHILS ABSOLUTE AUTO 0.01 K/mm3 (0.00-0.23); BASOPHILS PERCENT AUTO 0 % (0-2); EOSINOPHILS PERCENT AUTO 0 % (0-6); Hematocrit 38.5 % (37.0-53.0); Hemoglobin 13.8 g/dL (13.5-17.5); IMMATURE GRAN ABSOLUTE AUTO 0.04 K/mm3 (0.00-0.10); IMMATURE GRAN PERCENT AUTO 0 % (0-1); LYMPHOCYTES ABSOLUTE AUTO 1.57 K/mm3 (0.84-5.20); LYMPHOCYTES PERCENT AUTO 14 % (21-46); MONOCYTES ABSOLUTE AUTO 0.74 K/mm3 (0.16-1.47); MONOCYTES PERCENT AUTO 7 % (4-13); Mean Corpuscular HGB 27.5 pg (26.0-34.0); Mean Corpuscular HGB Conc 35.8 g/dL (31.5-36.5); Mean Corpuscular Volume 77 fL (80-100); Mean Platelet Volume 9.3 fL (9.1-12.4); NEUTROPHILS PERCENT AUTO 78 % (41-73); Platelet Count 280 K/mm3 (150-400); RDW Coefficient Variation 12.4 % (11.7-14.2); RDW Standard Deviation 33.6 fL (35.1-46.3); Red Blood Cell Count 5.01 M/mm3 (4.30-5.90)
[2021-07-30 15:40] LABS: Albumin, Blood 3.8 g/dL (3.4-5.0); Base Excess Venous -1.9 mmol/L; Bicarbonate Venous 23.9 mmol/L (24.0-30.0); Bilirubin, Total 1.7 mg/dL (0.1-1.0); Bun/Creatinine Ratio 14.1 (12.0-20.0); Calcium, Blood 9.5 mg/dL (8.5-10.1); Creatinine, Blood 1.85 mg/dL (0.60-1.20); Globulin, Blood 3.8 g/dL (2.2-4.0); PCO2 Venous 27.4 mmHg (38-42); PO2 Venous 115 mmHg (38-42); Potassium, Blood 3.7 mmol/L (3.5-5.5); Total Protein, Blood 7.6 g/dL (6.4-8.2)
[2021-07-30] MEDS ORDERED: ONDA4ODT SL (22:04)
== END 2021-07-31 06:02 | disposition home or self-care (01) ==
LOC: ER 14:32
PROVIDERS: Physician Assistant
DX: E11.65 Type 2 diabetes mellitus with hyperglycemia (principal); R10.9 Unspecified abdominal pain; R11.10 Vomiting, unspecified; I12.9 Hypertensive chronic kidney disease with stage 1 through stage 4 chronic kidney disease, or unspecified chronic kidney disease; E11.22 Type 2 diabetes mellitus with diabetic chronic kidney disease; N18.30 Chronic kidney disease, stage 3 unspecified; G43.909 Migraine, unspecified, not intractable, without status migrainosus; Z79.82 Long term (current) use of aspirin; Z79.899 Other long term (current) drug therapy
CPT/HCPCS: 36415; 71046; 74177; 80053; 82803; 82947; 85025; 93005; 93010; 96374; 96375; 99285-25; A9270; J1790; J1815; J2405; J7030; Q9967

== ENCOUNTER 2021-10-24 14:28 | Emergency (ER) | payer MEDICARE, OTHER ==
[~2021-10-24 14:28] MED LIST changes: +ONDA4ODT SL
== END 2021-10-24 14:49 | disposition home or self-care (01) ==
LOC: ER 14:28
DX: Z53.21 Procedure and treatment not carried out due to patient leaving prior to being seen by health care provider (principal)

== ENCOUNTER 2022-03-15 16:05 | Inpatient (IN) | payer MEDICARE ==
[~2022-03-15] VITALS: Ht 188 cm; Wt 103.0 kg
[2022-03-15 17:16] LABS: BASOPHILS ABSOLUTE AUTO 0.03 K/mm3 (0.00-0.23); BASOPHILS PERCENT AUTO 0 % (0-2); EOSINOPHILS PERCENT AUTO 0 % (0-6); Hematocrit 47.8 % (37.0-53.0); Hemoglobin 17.2 g/dL (13.5-17.5); IMMATURE GRAN ABSOLUTE AUTO 0.04 K/mm3 (0.00-0.10); IMMATURE GRAN PERCENT AUTO 0 % (0-1); LYMPHOCYTES ABSOLUTE AUTO 1.19 K/mm3 (0.84-5.20); LYMPHOCYTES PERCENT AUTO 8 % (21-46); MONOCYTES ABSOLUTE AUTO 0.48 K/mm3 (0.16-1.47); MONOCYTES PERCENT AUTO 3 % (4-13); Mean Corpuscular HGB 27.2 pg (26.0-34.0); Mean Corpuscular Volume 76 fL (80-100); Mean Platelet Volume 9.8 fL (9.1-12.4); NEUTROPHILS ABSOLUTE AUTO 12.83 K/mm3 (1.96-9.15); NEUTROPHILS PERCENT AUTO 88 % (41-73); Platelet Count 250 K/mm3 (150-400); RDW Coefficient Variation 13.2 % (11.7-14.2); RDW Standard Deviation 35.3 fL (35.1-46.3); Red Blood Cell Count 6.33 M/mm3 (4.30-5.90); White Blood Cell Count 14.57 K/mm3 (4.00-11.30)
[2022-03-15 17:23] LABS: Albumin, Blood 5.1 g/dL (3.4-5.0); Albumin/Globulin Ratio 1.3 (0.8-1.8); Bilirubin, Total 2.8 mg/dL (0.1-1.0); Calcium, Blood 10.6 mg/dL (8.5-10.1); Creatinine, Blood 1.89 mg/dL (0.60-1.20); Globulin, Blood 3.8 g/dL (2.2-4.0); Potassium, Blood 3.5 mmol/L (3.5-5.5); Total Protein, Blood 8.9 g/dL (6.4-8.2)
[2022-03-15 17:39] LABS: Base Excess Venous -11.2 mmol/L; Bicarbonate Venous 18.5 mmol/L (24.0-30.0); PCO2 Venous 16.5 mmHg (38-42); pH Blood Venous 7.48 (7.34-7.37)
[2022-03-16 00:37] LABS: Bun/Creatinine Ratio 16.4 (12.0-20.0); Calcium, Blood 9.6 mg/dL (8.5-10.1); Creatinine, Blood 1.89 mg/dL (0.60-1.20); Potassium, Blood 3.8 mmol/L (3.5-5.5)
[2022-03-16 02:00] LABS: Source, Urine Clean Catch
[2022-03-16 02:02] LABS: Bilirubin, Urine Neg (Neg); Blood, Urine 2+ (Neg); Glucose Qualitative, Urine 4+ (Neg); Ketones, Urine 3+ (Neg); Leukocyte Esterase, Urine Neg (Neg); Nitrite, Urine Neg (Neg); Protein, Urine 3+ (Neg); Specific Gravity, Urine 1.015 (1.003-1.022); Urobilinogen, Urine NORM (Normal)
[2022-03-16 02:11] LABS: Appearance, Urine Clear (Clear); Color, Urine Yellow (P-Yellow)
[2022-03-16 02:18] LABS: U Amphetamine Screen Not Detected; U Barbituate Screen Not Detected; U Benzodiazapine Screen Not Detected; U Cannabinoids Screen DETECTED; U Cocaine Screen Not Detected; U Methadone Screen Not Detected; U Methamphetamine Screen Not Detected; U Opiates Screen Not Detected; U Phencyclidine Screen Not Detected
[2022-03-16 02:19] LABS: U Buprenorphine Screen Not Detected; U Oxycodone Screen Not Detected; U Propoxyphene Screen Not Detected
[2022-03-16 02:20] LABS: Bacteria Not Seen /hpf; Red Blood Cells, Urine 0-2 /hpf (0-2); Squamous Epithelial Cells Not Seen /hpf (Few); White Blood Cells, Urine 0-2 /hpf (0-5)
[2022-03-16 06:51] LABS: Albumin, Blood 3.7 g/dL (3.4-5.0); Bilirubin, Total 2.3 mg/dL (0.1-1.0); Bun/Creatinine Ratio 16.9 (12.0-20.0); Calcium, Blood 9.1 mg/dL (8.5-10.1); Creatinine, Blood 1.83 mg/dL (0.60-1.20); Potassium, Blood 3.8 mmol/L (3.5-5.5)
[2022-03-16 06:54] LABS: Albumin/Globulin Ratio 1.2 (0.8-1.8); Globulin, Blood 3.2 g/dL (2.2-4.0); Total Protein, Blood 6.9 g/dL (6.4-8.2)
[2022-03-16] MEDS ORDERED: PRAZOSIN HCL1 M2 PO (13:16)
[2022-03-16] MEDS ORDERED: AMLODIPINE BESY10 MG PO (13:16)
[2022-03-16] MEDS ORDERED: QUETIAPINE FUMA PO (13:17)
[2022-03-16] MEDS ORDERED: VENL75ER PO (13:18)
[2022-03-16] MEDS ORDERED: NOVOLIN N100 UNIT/2 SC (13:20)
[2022-03-16] MEDS ORDERED: FARXIGA5 MG PO (13:20)
[2022-03-16] MEDS ORDERED: CARVEDILOL PO (13:21)
[2022-03-16] MEDS ORDERED: SPIRONOLACTONE25 MG PO (13:22)
[2022-03-16 13:39] LABS: Bun/Creatinine Ratio 15.7 (12.0-20.0); Calcium, Blood 9.2 mg/dL (8.5-10.1); Creatinine, Blood 1.91 mg/dL (0.60-1.20); Magnesium, Blood 2.3 mg/dL (1.6-2.4); Potassium, Blood 3.5 mmol/L (3.5-5.5)
[2022-03-16] MEDS ORDERED: HYDPAM50 PO (16:50)
[2022-03-16] MEDS ORDERED: PROM25 PO (16:50)
--- NOTE | 2022-03-16 17:58 | NUR ---
ADMIT/DISCHARGE SUMMARY: PT ADMITTED TO PCU, ARRIVING TO UNIT APPROX 1145. PT A&Ox4 T/OUT THE DAY, DENIES SOB OR CP, REPORTS IMPROVEMENT OF SYMPTOMS. REPEAT LABS SHOW LABS TRENDING IN DESIRED DIRECTION. PT CLEARED FOR DISCHARGE. IV ACCESS DC'd, PT PROVIDED WITH DC PAPERWORK AND INSTRUCTIONS, V/U AND ESCORTED FROM UNIT VIA W/C IN NAD.
== END 2022-03-16 17:44 | disposition home or self-care (01) | DRG 638 ==
LOC: ER 16:05 → ERHOLD 23:58 → PCU 03-16 11:46
PROVIDERS: Emergency Medicine; Internal Medicine; Student in an Organized Health Care Education/Training Program; ADMIT Family Medicine
DX: E11.10 Type 2 diabetes mellitus with ketoacidosis without coma (principal); R65.10 Systemic inflammatory response syndrome (SIRS) of non-infectious origin without acute organ dysfunction; I12.9 Hypertensive chronic kidney disease with stage 1 through stage 4 chronic kidney disease, or unspecified chronic kidney disease; E11.22 Type 2 diabetes mellitus with diabetic chronic kidney disease; F32.A Depression, unspecified; F41.9 Anxiety disorder, unspecified; N40.0 Benign prostatic hyperplasia without lower urinary tract symptoms; N18.30 Chronic kidney disease, stage 3 unspecified; R11.2 Nausea with vomiting, unspecified; G43.909 Migraine, unspecified, not intractable, without status migrainosus; I45.6 Pre-excitation syndrome; Z98.890 Other specified postprocedural states; Z79.82 Long term (current) use of aspirin; Z79.84 Long term (current) use of oral hypoglycemic drugs; Z79.899 Other long term (current) drug therapy
CPT/HCPCS: 36415; 71045; 80048; 80053; 81001; 82803; 82947; 83605; 83690; 83735; 84145; 84484; 85025; 93005; 93010; 96361; 96372-59; 96374; 96375; 99285-25; A9270; C9113; J0696; J1200; J1630; J1650; J1815; J2765; J7120

== ENCOUNTER 2022-08-24 | Inpatient (IN) | payer MEDICARE ==
[~2022-08-24] VITALS: Ht 188 cm; Wt 102.8 kg
[~2022-08-24] MED LIST changes: +AMLODIPINE BESY10 MG PO; +FARXIGA5 MG PO; -FISH OIL 1,0001 EAC7 PO; +Hydroxyzine HCl50 MG PO; -LAMOTRIGINE25 M4 PO; +NOVOLIN N100 UNIT/2 SC; +OMEGA-3 FISH O1 EAC6 PO; +PRAZOSIN HCL1 M2 PO; +QUETIAPINE FUMA PO; +SPIRONOLACTONE25 MG PO; +VENL75ER PO
[2022-08-24 00:19] LABS: BASOPHILS ABSOLUTE AUTO 0.03 K/mm3 (0.00-0.23); BASOPHILS PERCENT AUTO 0 % (0-2); EOSINOPHILS PERCENT AUTO 0 % (0-6); Hematocrit 47.9 % (37.0-53.0); Hemoglobin 17.1 g/dL (13.5-17.5); IMMATURE GRAN ABSOLUTE AUTO 0.05 K/mm3 (0.00-0.10); IMMATURE GRAN PERCENT AUTO 0 % (0-1); LYMPHOCYTES ABSOLUTE AUTO 0.99 K/mm3 (0.84-5.20); LYMPHOCYTES PERCENT AUTO 7 % (21-46); MONOCYTES PERCENT AUTO 4 % (4-13); Mean Corpuscular HGB 27.5 pg (26.0-34.0); Mean Corpuscular HGB Conc 35.7 g/dL (31.5-36.5); Mean Corpuscular Volume 77 fL (80-100); Mean Platelet Volume 9.1 fL (9.1-12.4); NEUTROPHILS ABSOLUTE AUTO 12.34 K/mm3 (1.96-9.15); NEUTROPHILS PERCENT AUTO 88 % (41-73); Platelet Count 249 K/mm3 (150-400); RDW Coefficient Variation 13.1 % (11.7-14.2); RDW Standard Deviation 35.5 fL (35.1-46.3); Red Blood Cell Count 6.21 M/mm3 (4.30-5.90); White Blood Cell Count 14.01 K/mm3 (4.00-11.30)
[2022-08-24 00:29] LABS: PCO2 Venous 15.3 mmHg (38-42)
[2022-08-24 00:30] LABS: Calcium, Ionized (POC) 1.07 mmol/L (1.10-1.46); Chloride (POC) 114 mmol/L (98-108); Creatinine (POC) 1.9 mg/dL (0.8-1.3); Glucose (ISTAT POC) 278 mg/dL (70-99); Potassium (POC) 3.5 mmol/L (3.5-5.5); Sodium (POC) 144 mmol/L (135-148); Total CO2 (POC) 11 mmol/L (21-32)
[2022-08-24 00:30] LABS: Base Excess Venous -9.9 mmol/L; Bicarbonate Venous 19.8 mmol/L (24.0-30.0)
[2022-08-24 00:32] LABS: pH Blood Venous 7.53 (7.34-7.37)
[2022-08-24 00:33] LABS: Albumin, Blood 4.2 g/dL (3.4-5.0); Bilirubin, Total 2.2 mg/dL (0.1-1.0); Bun/Creatinine Ratio 13.5 (12.0-20.0); Calcium, Blood 9.7 mg/dL (8.5-10.1); Creatinine, Blood 1.71 mg/dL (0.60-1.20); Globulin, Blood 4.3 g/dL (2.2-4.0); Potassium, Blood 3.6 mmol/L (3.5-5.5); Total Protein, Blood 8.5 g/dL (6.4-8.2)
[2022-08-24 01:13] LABS: Source, Urine Clean Catch
[2022-08-24 01:16] LABS: Bilirubin, Urine Neg (Neg); Blood, Urine 3+ (Neg); Glucose Qualitative, Urine 4+ (Neg); Ketones, Urine 4+ (Neg); Leukocyte Esterase, Urine Neg (Neg); Nitrite, Urine Neg (Neg); Protein, Urine 3+ (Neg); Urobilinogen, Urine NORM (Normal)
[2022-08-24 01:21] LABS: Appearance, Urine Clear (Clear); Color, Urine Yellow (P-Yellow)
[2022-08-24 01:24] LABS: Bacteria Not Seen /hpf; Red Blood Cells, Urine 0-2 /hpf (0-2); Squamous Epithelial Cells Not Seen /hpf (Few); White Blood Cells, Urine 0-2 /hpf (0-5)
[2022-08-24] MEDS ORDERED: LORA.5 PO (01:39)
[2022-08-24] MEDS ORDERED: Aspir 8181 MG PO (04:13)
[2022-08-24] MEDS ORDERED: CATAPRES0.1 MG PO (04:15)
[2022-08-24] MEDS ORDERED: VENL75ER PO (04:29)
[2022-08-24] MEDS ORDERED: HYDCHL25 PO (04:34)
[2022-08-24] MEDS ORDERED: Seroquel Xr50 MG PO (04:35)
[2022-08-24] MEDS ORDERED: DUTA.5 PO (04:36)
[2022-08-24] MEDS ORDERED: TRAZ50 PO (04:37)
[2022-08-24] MEDS ORDERED: CITALOPRAM HBR10 MG PO (04:39)
[2022-08-24] MEDS ORDERED: FARXIGA5 MG PO (04:40)
[2022-08-24 05:58] LABS: Bun/Creatinine Ratio 13.7 (12.0-20.0); Calcium, Blood 9.2 mg/dL (8.5-10.1); Creatinine, Blood 1.53 mg/dL (0.60-1.20); Potassium, Blood 3.6 mmol/L (3.5-5.5)
--- NOTE | 2022-08-24 08:50 | NUR ---
PHYSICIAN CONTACT THIS MORNING, SBP 220. PATIENT REPORTED CHEST PAIN, DIZZINESS, AND HEADACHE. PATIENT GIVEN 10MG OF HYDRALAZINE ON NIGHTSHIFT. DR. SHELTON CALLED AND ADDITIONAL 10MG OF HYDRALAZINE ORDERED, EKG, AND IV LABETALOL. EKG DONE, IN CHART. HYDRALAZINE AND LABETALOL GIVEN. SBP STILL 190. DR. MOORE NOTIFIED. PATIENT UNABLE TO TAKE PO MEDICATIONS DUE TO VOMITING. NEW ORDERS. MEDICATIONS GIVEN. SBP NOW 130. PATIENT RESTING.
[2022-08-24 10:46] LABS: Potassium, Blood 3.8 mmol/L (3.5-5.5)
--- NOTE | 2022-08-24 10:56 | NUR ---
PT TRANSFERED FROM MEDICAL FLOOR TO ICU 6 AT 1040. PT IS A/O X4, DENIES CP OR PRESSURE. PT 4 PERSON MAX ASSIST WITH SLIDER TO BED. URINAL GIVEN. NICARDIPINE GTT STARTED PER ORDERS TO TITRATE FOR SBP LESS THAN 180. SEE FLOWSHEET. PT IS RESTING IN BED USING CELL PHONE.
--- NOTE | 2022-08-24 11:17 | NUR ---
PT TRANSFERED TO ICU. REPORT GIVEN TO JOVANA LAZARO. DAUGHTER SCOTT NOTIFIED.
--- NOTE | 2022-08-24 12:04 | NUR ---
CARE ASSUMED OF PT AT 1145. PT AWAKE IN BED. PT FLUSHED, TEMP 98.6. PT DENIES NAUSEA AT THIS TIME BUT STATES HE HAS BURNING PAIN ACROSS UPPER ABD 03/22. NICARDIPINE GTT AT 5MG/HR, SBP <180 AT THIS TIME. PO MEDS HELD D/T INTRACTABLE N/V. PT STATES THERE WAS SOME BLOOD IN HIS VOMIT PRIOR TO HIS TRANSFER TO ICU. WILL CHECK WITH DR MOORE PRIOR TO GIVING LOVENOX. NS STARTED AT 150CC/HR. BS 205, PT COVERED W 2UNITS. FREQUENT LAB DRAWS ORDERED W BS ORDERED Q2HRS. WILL PLACE POWERGLIDE.
--- NOTE | 2022-08-24 12:11 | NUR ---
UPDATE GIVEN TO DEISY DESHPANDE TO BE HELD FOR NOW.
[2022-08-24 14:34] LABS: Potassium, Blood 3.7 mmol/L (3.5-5.5)
--- NOTE | 2022-08-24 14:38 | NUR ---
LABS CALLED TO DR MOORE. PT SLEEPING, PAIN IS IMPROVED 10/20. NICARDIPINE GTT INCREASED TO 7.5MG TO KEEP SBP <180.
--- NOTE | 2022-08-24 16:49 | NUR ---
PT C/O UPPER ABD PAIN 6/10, BURNING PAIN. PT FEELS NAUSEATED, PT ALSO C/O SEVERE ANXIETY. HR 130'S, RESP 30'S, BP 197/87. MS 2MG GIVEN FOR PAIN.
--- NOTE | 2022-08-24 17:20 | NUR ---
PT RESTING QUIETLY, AWAKENS TO VOICE. STATES PAIN IS IMPROVING 3/10, DENIES NAUSEA. ANXIETY IMPROVED. HR 112, BP 103/79. NICARDIPINE GTT PLACED ON STANDBY. PT STATES HE FEELS LIKE HE IS WITHDRAWING FROM HOME MEDS. HE STATES THAT HE FEELS WITHDRAWAL SYMPTOMS WITHIN HOURS OF MISSING HOME MEDS. PT STATES HE TAKES ATIVAN DAILY, ATIVAN IS NOT LISTED ON MED REC, PT UNSURE OF DOSE AND FREQUENCY. PT DENIES ALCOHOL USE, STATES HE QUIT 30YEARS AGO. PT HAD BEEN SHAKING SIGNIFICANTLY WITH PAIN, ANXIETY, AND NAUSEA; THIS IS RESOLVING NOW.
[2022-08-24 18:35] LABS: Potassium, Blood 4.1 mmol/L (3.5-5.5)
--- NOTE | 2022-08-24 20:39 | NUR ---
PATIENT RESTING QUIETLY VISITING WITH DAUGHTERS. ASKING FOR SOMETHING TO EAT. GIVEN CLEAR LIQUID ENSURE WITH HIS PO MEDICATIONS, NO C/O NAUSEA AT THIS TIME. C/O BURNING PAIN TO UPPER ABD AREA. NICARDIPINE DRIP 5 MG/HR FOR CONTINUED HYPERTENSION PLAN TO TITRATE TO KEEP SBP < 180. SLIGHT TREMOR TO UPPER ARMS AND SHOULDER SEEN DURING CONVERSATION.
[2022-08-24 22:16] LABS: Potassium, Blood 3.5 mmol/L (3.5-5.5)
[2022-08-25 05:00] LABS: Hematocrit 43.2 % (37.0-53.0); Hemoglobin 15.2 g/dL (13.5-17.5); Mean Corpuscular HGB 27.7 pg (26.0-34.0); Mean Corpuscular HGB Conc 35.2 g/dL (31.5-36.5); Mean Corpuscular Volume 79 fL (80-100); Platelet Count 181 K/mm3 (150-400); RDW Coefficient Variation 13.7 % (11.7-14.2); Red Blood Cell Count 5.49 M/mm3 (4.30-5.90); White Blood Cell Count 12.13 K/mm3 (4.00-11.30)
[2022-08-25 05:17] LABS: Bun/Creatinine Ratio 16.2 (12.0-20.0); Calcium, Blood 8.6 mg/dL (8.5-10.1); Creatinine, Blood 1.42 mg/dL (0.60-1.20); Potassium, Blood 3.8 mmol/L (3.5-5.5)
--- NOTE | 2022-08-25 06:41 | NUR ---
SUMMARY PATIENT SLEEPING OFF AND ON T/O NIGHT. AT TIMES WITH TREMORS. NO NAUSEA THIS AM, ADVANCED DIET WITH DOCTOR NIKITA TO FULL LIQUID. NICARDIPINE BACK ON AT 5 MG/HR. ATIVAN GIVEN TWICE FOR TREMORS AND WHEN HEART RATE UP. MEDICATED WITH LABETALOL TWICE DURING THE NIGHT FOR HYPERTENSION AND ELEVATED HEART RATE. PATIENT RESTLESS THIS MORNING AND FOUND STANDING AT SIDE OF BED, PATIENT ASSISTED TO SITTING IN CHAIR. SLIM CLEAR LIQUIDS WELL, NO C/O NAUSEA
--- NOTE | 2022-08-25 07:00 | NUR ---
ASSUME CARE: I have assumed care of this patient.
--- NOTE | 2022-08-25 14:33 | NUR ---
PROVIDER UPDATE: Dr Carl updated on pt status. Telephone order for transfer and q4h blood sugars.
--- NOTE | 2022-08-25 18:00 | NUR ---
SHIFT/TRANSFER SUMMARY: Pt transitioned to oral medications this morning. He has been tolerating PO with minimal nausea. Pt transferred into chair a few times with standby assist due to initial unsteady gait. He is using urinal independantly. CBG's changed to Q4 hrs. Sliding scale coverage required throughout the day. Report given to medical floor nurse. He will be taken up via wheelchair by PASTORAL MINISTRIES PROFESSOR.
--- NOTE | 2022-08-25 18:30 | NUR ---
PT TX TO ROOM 361 VIA WC. PT A/O X 4 STANDBY ASSIST. PT SHAKY ON FEET. PT TUCKED INTO BED, DENIES ANY NEEDS OR CONCERNS AT THIS TIME. WATER REFILLED. BED ALARM SET AND PT ORIENTED TO RM/CALL LIGHT/FALL PECAUTIONS. WILL REPORT TO ONCOMING RN.
--- NOTE | 2022-08-26 05:01 | NUR ---
RADIATION ENGINEER SUMMARY NO ACUTE EVENTS THROUGHOUT THE NIGHT. A&OX4. PATIENT EFFECTIVELY COMMUNICATES NEEDS. DR. SHELTON NOTIFIED OF SBP >180, ORDERING FOR PATIENT'S PERSISTENT NAUSEA IS TO BE TREATED FIRST WITH REGLAN AND THEN BP WILL BE REEVALUATED. BED LOW AND LOCKED. CALL LIGHT WITHIN REACH. THIS RN WILL CONTINUE TO CLOSELY MONITOR.
[2022-08-26 05:21] LABS: Hemoglobin 14.5 g/dL (13.5-17.5); Mean Corpuscular HGB Conc 35.4 g/dL (31.5-36.5); Mean Corpuscular Volume 79 fL (80-100); Platelet Count 171 K/mm3 (150-400); RDW Coefficient Variation 13.4 % (11.7-14.2); RDW Standard Deviation 38.2 fL (35.1-46.3); Red Blood Cell Count 5.18 M/mm3 (4.30-5.90)
[2022-08-26 05:43] LABS: Bun/Creatinine Ratio 14.8 (12.0-20.0); Calcium, Blood 8.1 mg/dL (8.5-10.1); Creatinine, Blood 1.35 mg/dL (0.60-1.20); Potassium, Blood 3.3 mmol/L (3.5-5.5)
--- NOTE | 2022-08-26 10:24 | NUR ---
DAUGHTER REQUEST DAUGHTER, EMELI, REQUESTED IF WE COULD LOOK AT UPPER ENDOSCOPY D/T TO HER DAD'S REPEATED INCIDENCE OF N/V. WHY THIS KEEPS HAPPENINGHAS NOT BEEN EXPLAINED. CONTINUE POC.
--- NOTE | 2022-08-26 16:57 | NUR ---
EVENING NOTE PT SITTING UP IN THE CHAIR. UP ADLIB. GAIT STEADY. PT RELATED THAT HIS NAUSEA FEELS MUCH BETTER AFTER USING THE REGLAN. TOLERATED LUNHC WELL. BLOOD SUGARS STABLE FOR HIM. BP STILL HIGH BUT HE STATES THAT IT'S BETTER THAN IT USUALLY IS. PT IS PLANNING TO D/C TOMORROW BY 1000. HE HAS A TRAIN TO CATCH TO [facility]. HE IS ACTUALLY HUNGRY. VOIDING WELL. BM X1. RA. EKG DONE THIS AFTERNOON. ELONGATED QTC FROM ER HAS RESOLVED. QTC WNL. CONTINUE POC.
--- NOTE | 2022-08-27 05:09 | NUR ---
MINING TEACHER SUMMARY NO ACUTE EVENTS THROUGHOUT THE NIGHT. A&OX4. PATIENT EFFECTIVELY COMMUNICATES NEEDS. VSS. RR EVEN AND UNLABORED ON RA. NO REPORTS OF PAIN OR OTHER SYMPTOMS THIS SHIFT. PATIENT REPORTS SIGNIFICANT RELIEF AFTER RECEIVING SCHEDULED REGLAN. BED LOW AND LOCKED. CALL LIGHT WITHIN REACH. THIS RN WILL CONTINUE TO MONITOR.
[2022-08-27] MEDS ORDERED: CATAPRES0.1 MG PO (08:32)
[2022-08-27] MEDS ORDERED: HYDRA25 PO (08:33)
[2022-08-27] MEDS ORDERED: LOSA50 PO (08:37)
[2022-08-27] MEDS ORDERED: METO5A PO (08:40)
--- NOTE | 2022-08-27 09:34 | NUR ---
DISCHARGE PT TO DISCHARGE THIS MORNING. PAPERWORK COMPLETED. AWAITIG DAUGHTER TO ARRIVE TO TRANSPORT. CONTINUE POC.
== END 2022-08-27 10:00 | disposition home or self-care (01) | DRG 638 ==
LOC: ER → MEDS 00:01 → ICUE 10:41 → MEDS 08-25 18:22
PROVIDERS: Emergency Medicine; Internal Medicine; ADMIT Internal Medicine
DX: E11.10 Type 2 diabetes mellitus with ketoacidosis without coma (principal); R65.10 Systemic inflammatory response syndrome (SIRS) of non-infectious origin without acute organ dysfunction; N18.30 Chronic kidney disease, stage 3 unspecified; E11.22 Type 2 diabetes mellitus with diabetic chronic kidney disease; E11.65 Type 2 diabetes mellitus with hyperglycemia; I12.9 Hypertensive chronic kidney disease with stage 1 through stage 4 chronic kidney disease, or unspecified chronic kidney disease; I16.0 Hypertensive urgency; E87.6 Hypokalemia; R94.31 Abnormal electrocardiogram [ECG] [EKG]; F32.A Depression, unspecified; F41.9 Anxiety disorder, unspecified; N40.0 Benign prostatic hyperplasia without lower urinary tract symptoms; G43.909 Migraine, unspecified, not intractable, without status migrainosus; I45.6 Pre-excitation syndrome; Z98.890 Other specified postprocedural states; Z28.310 Unvaccinated for COVID-19; Z87.891 Personal history of nicotine dependence; Z79.899 Other long term (current) drug therapy; Z79.82 Long term (current) use of aspirin; Z79.02 Long term (current) use of antithrombotics/antiplatelets; Z79.01 Long term (current) use of anticoagulants; Z79.4 Long term (current) use of insulin
CPT/HCPCS: 36415; 36430; 71045; 76705; 80047; 80048; 80051; 80053; 81001; 82010; 82803; 82947; 84484; 85014; 85025; 85027; 93005; 93010; 96361; 96365; 96375; 96376; 99285-25; A9270; C1751; G0378; J0360; J1650; J1815; J2060; J2270; J2550; J2765; J3010; J3475; J3480; J7030; J7050

== ENCOUNTER 2023-10-30 21:14 | Emergency (ER) | payer MEDICARE ==
[~2023-10-30] VITALS: Ht 185.4 cm; Wt 113.4 kg
[~2023-10-30 21:14] MED LIST changes: +Aspir 8181 MG PO; +CATAPRES0.1 MG PO; +CITALOPRAM HBR10 MG PO; +DUTA.5 PO; +LORA.5 PO; +METO5A PO; +Seroquel Xr50 MG PO; +TRAZ50 PO
[2023-10-30 21:32] LABS: BASOPHILS ABSOLUTE AUTO 0.04 K/mm3 (0.00-0.23); BASOPHILS PERCENT AUTO 0 % (0-2); EOSINOPHILS PERCENT AUTO 0 % (0-6); Hematocrit 46.3 % (37.0-53.0); Hemoglobin 16.3 g/dL (13.5-17.5); IMMATURE GRAN ABSOLUTE AUTO 0.08 K/mm3 (0.00-0.10); IMMATURE GRAN PERCENT AUTO 1 % (0-1); LYMPHOCYTES ABSOLUTE AUTO 1.21 K/mm3 (0.84-5.20); LYMPHOCYTES PERCENT AUTO 8 % (21-46); MONOCYTES ABSOLUTE AUTO 0.76 K/mm3 (0.16-1.47); MONOCYTES PERCENT AUTO 5 % (4-13); Mean Corpuscular HGB 28.1 pg (26.0-34.0); Mean Corpuscular HGB Conc 35.2 g/dL (31.5-36.5); Mean Corpuscular Volume 80 fL (80-100); Mean Platelet Volume 8.9 fL (9.1-12.4); NEUTROPHILS ABSOLUTE AUTO 14.11 K/mm3 (1.96-9.15); NEUTROPHILS PERCENT AUTO 87 % (41-73); Platelet Count 235 K/mm3 (150-400); RDW Coefficient Variation 12.8 % (11.7-14.2); RDW Standard Deviation 35.7 fL (35.1-46.3)
[2023-10-30] MEDS ORDERED: Ondansetron HCl 2 MG / ML 2ML Vial IV ONE (21:45)
[2023-10-30 21:55] LABS: Albumin, Blood 4.3 g/dL (3.4-5.0); Bilirubin, Total 2.2 mg/dL (0.1-1.0); Bun/Creatinine Ratio 14.9 (12.0-20.0); Calcium, Blood 9.9 mg/dL (8.5-10.1); Creatinine, Blood 1.94 mg/dL (0.60-1.20); Globulin, Blood 4.2 g/dL (2.2-4.0); Potassium, Blood 4.8 mmol/L (3.5-5.5); Total Protein, Blood 8.5 g/dL (6.4-8.2)
[2023-10-30] MEDS ORDERED: HYDROmorphone HCl/Pf 1MG SYR IV ONE (22:30)
[2023-10-30] MEDS ORDERED: Droperidol 5 mg/2 ml Vial IV ONE ×2 (22:30→23:10)
[2023-10-30] MEDS ORDERED: NS 1,000 ML IV ONE (22:30)
[2023-10-30] MEDS ORDERED: NS 1,000 ML IV SCH (22:30)
[2023-10-30 22:47] LABS: Source, Urine Clean Catch
[2023-10-30 22:58] LABS: Bilirubin, Urine Neg (Neg); Blood, Urine 1+ (Neg); Glucose Qualitative, Urine 4+ (Neg); Ketones, Urine 3+ (Neg); Leukocyte Esterase, Urine Neg (Neg); Nitrite, Urine Neg (Neg); Protein, Urine 2+ (Neg); Specific Gravity, Urine 1.015 (1.003-1.022); Urobilinogen, Urine NORM (Normal)
[2023-10-30 23:33] LABS: Appearance, Urine Clear (Clear); Color, Urine Pale Yellow (P-Yellow)
[2023-10-30 23:34] LABS: Bacteria Rare /hpf; Red Blood Cells, Urine 0-2 /hpf (0-2); Squamous Epithelial Cells Rare /hpf (Few); White Blood Cells, Urine 0-2 /hpf (0-5)
[2023-10-30 23:57] LABS: Beta-hydroxybutyrate 34.1 mg/dL (0.2-2.8)
[2023-10-31] MEDS ORDERED: RX Prepack 2 Tabs Ondansetron ODT 4MG UD ONE (00:25)
[2023-10-31 01:25] VITALS: BP 132/91
== END 2023-10-31 01:25 | disposition home or self-care (01) ==
LOC: ER 21:14
PROVIDERS: Emergency Medicine
DX: R11.2 Nausea with vomiting, unspecified (principal); E11.9 Type 2 diabetes mellitus without complications; I10 Essential (primary) hypertension; Z79.899 Other long term (current) drug therapy
CPT/HCPCS: 74177; 80053; 81001; 82010; 82800; 82947; 83690; 85025; 93005; 93010; 96361; 96374; 96375; 96376; 99285-25; A9270; J1170; J1790; J2405; J7030; Q9967